=== PATIENT | male | born 1945 | race Two or more races ===

== ENCOUNTER 2017-11-16 17:12 | Inpatient (IN) | payer OTHER ==
[~2017-11-16] VITALS: Ht 175.3 cm; Wt 62.6 kg
[2017-11-16] MEDS ORDERED: FEE PK DOSING 1 MIN EA MC ONE (17:18)
[2017-11-16 18:01] LABS: BASOPHILS % (AUTO) 0.2 % (0.0-2.0); EOSINOPHILS # (AUTO) 0.1 /CMM (0.0-0.7); EOSINOPHILS % (AUTO) 0.4 % (0.0-6.0); HEMATOCRIT 33 % (39-51); HEMOGLOBIN 11.5 g/dL (13.5-17.5); LYMPHOCYTES # (AUTO) 6.6 /CMM (0.8-4.8); LYMPHOCYTES % (AUTO) 36.8 % (20.0-44.0); MEAN CORPUSCULAR HEMOGLOBIN 33 PG (26.0-33.0); MEAN CORPUSCULAR HGB CONC 34 g/dl (31.0-36.0); MEAN CORPUSCULAR VOLUME 95 fL (80-96); MONOCYTES # (AUTO) 1.3 /CMM (0.1-1.30); MONOCYTES % (AUTO) 7.1 % (2.0-12.0); NEUTROPHILS # (AUTO) 10.1 /CMM (1.8-8.9); NEUTROPHILS % (AUTO) 55.5 % (43.0-81.0); PLATELET COUNT (AUTO) 513 /CMM (150-450); RDW COEFFICIENT OF VARIATION 14.9 (11.5-15.0); RED BLOOD CELL COUNT(AUTO) 3.51 MIL/uL (4.5-6.0); WHITE BLOOD COUNT (AUTO) 18.1 K/uL (4.3-11.0)
[2017-11-16 18:16] LABS: INR 1.47 (0.87-1.13); PROTHROMBIN TIME 15.3 SECS (9.5-12.7)
[2017-11-16 18:18] LABS: ALANINE AMINOTRANSFERASE 166 U/L (12-78); ALBUMIN 2.1 g/dL (3.4-5.0); ALKALINE PHOSPHATASE 355 U/L (46-116); ASPARTATE AMINOTRANSFERASE 79 U/L (15-37); BILIRUBIN,DIRECT 0.6 mg/dL (0.0-0.2); BILIRUBIN,TOTAL 0.8 mg/dL (0.2-1.0); CARBON DIOXIDE 16 mmol/L (21-32); CHLORIDE 119 mmol/L (98-107); CREATININE 1.5 mg/dL (0.6-1.3); GLUCOSE 152 mg/dL (74-106); POTASSIUM 5.3 mmol/L (3.5-5.1); SODIUM SERUM 147 mmol/L (136-145); TOTAL PROTEIN, SERUM 7.3 g/dL (6.4-8.2); UREA NITROGEN, BLOOD 57 mg/dL (7-18)
[2017-11-16 18:20] LABS: TROPONIN I 0.027 ng/mL (0.00-0.056)
[2017-11-16] MEDS ORDERED: LACT-96 GT (18:54)
[2017-11-16] MEDS ORDERED: SODI325T GT (18:54)
[2017-11-16] MEDS ORDERED: IPRA3AMP IH ×2 (18:54)
[2017-11-16] MEDS ORDERED: HYDR-552 GT (18:54)
[2017-11-16] MEDS ORDERED: CHLO118M MM (18:54)
[2017-11-16] MEDS ORDERED: NIFE20CA GT (18:54)
[2017-11-16] MEDS ORDERED: VANC1VIA IV (18:54)
[2017-11-16] MEDS ORDERED: PROT946L GT (18:54)
[2017-11-16] MEDS ORDERED: FAMO20TA8 GT (18:54)
[2017-11-16] MEDS ORDERED: ACET650S26 GT (18:54)
[2017-11-16] MEDS ORDERED: LEVE500T9 GT (18:54)
[2017-11-16] MEDS ORDERED: FOLI1TAB16 GT (18:54)
[2017-11-16] MEDS ORDERED: HYDR-4077 GT (18:54)
[2017-11-16] MEDS ORDERED: THIA100T74 GT (18:54)
[2017-11-16] MEDS ORDERED: WARF1TAB6 GT (18:54)
[2017-11-16] MEDS ORDERED: RIFA550T GT (18:54)
[2017-11-16] MEDS ORDERED: ACID1TAB12 GT (18:54)
[2017-11-16] MEDS ORDERED: MULT-213 GT (18:54)
[2017-11-16] MEDS ORDERED: ASCO500T9 GT (18:54)
[2017-11-16] MEDS ORDERED: SODIUM POLYSTYRENE SULFONATE 15 G/60 ML BOTTLE PO ONE (19:00)
[2017-11-16] MEDS ORDERED: CEFTRIAXONE 1GM BAG (ER ONLY) 50 ML IV ONE ×2 (19:00→19:03)
[2017-11-16] MEDS ORDERED: DEXTROSE 50%-WATER 50 ML DISP.SYRIN IV PRN (19:00)
[2017-11-16] MEDS ORDERED: ACETAMINOPHEN 650 MG/SUPP.RECT RC PRN (19:00)
[2017-11-16] MEDS ORDERED: NOREPINEPHRINE 8 MG in IV D5W 500 ML IV PRN (19:00)
[2017-11-16] MEDS ORDERED: ONDANSETRON HCL/PF 4 MG/2 ML VIAL IVP PRN (19:00)
[2017-11-16 19:54] LABS: APPEARANCE,URINE CLEAR (CLEAR); BILIRUBIN,URINE NEGATIVE (NEGATIVE); BLOOD, URINE NEGATIVE Ery/uL (NEGATIVE); COLOR,URINE YELLOW (YELLOW); KETONES,URINE NEGATIVE (NEGATIVE); LEUKOCYTE ESTERASE ,URINE NEGATIVE (NEGATIVE); NITRITE, URINE NEGATIVE (NEGATIVE); PH,URINE 5.5 (5.0-8.0); PROTEIN,URINE NEGATIVE (NEGATIVE); UGLUCOSE NEGATIVE (NEGATIVE); UROBILINOGEN,URINE 0.2 EU/dL (0.2)
[2017-11-16] MEDS ORDERED: IV NS 0.9% 1,000 ML BAG IV ONE (20:00)
[2017-11-16] MEDS ORDERED: IPRATROPIUM NEB FS 0.5 MG/2.5 ML AMPUL.NEB NEB PRN (20:30)
[2017-11-16] MEDS ORDERED: ACETAMINOPHEN 650 MG/20.3 ML UDC GT PRN (20:30)
[2017-11-16] MEDS ORDERED: VANCOMYCIN 1.25 GM in IV D5W 500 ML IV SCH (21:00)
[2017-11-16] MEDS ORDERED: PIPERACILLIN /TAZOBACTAM 4.5 G in IV D5W 50 ML IV SCH (21:00)
[2017-11-16 21:46] VITALS: BP 146/94
[2017-11-16] MEDS: PIPERACILLIN /TAZOBACTAM 3.375 G in IV D5W 50 ML IV SCH (21:53)
[2017-11-16] MEDS: IV NS 0.9% 1,000 ML IV SCH (21:53)
[2017-11-16 22:00] VITALS: BP 145/82
[2017-11-16 22:15] VITALS: BP 136/74
[2017-11-16] MEDS: NORMAL SALINE FLUSH 10 ML SYR IV SCH (22:29)
[2017-11-16 22:45] VITALS: BP 131/79
[2017-11-16] MEDS ORDERED: SODIUM POLYSTYRENE SULFONATE 15 G/60 ML BOTTLE ONE (22:45)
[2017-11-16] MEDS: LEVETIRACETAM SOL (5 ML) 100 MG/ML UDC GT SCH (22:46)
[2017-11-16 23:00] VITALS: BP 143/80
[2017-11-16] MEDS ORDERED: INSULIN REGULAR, HUMAN 100 UNIT/ML 3 ML VIAL ONE (23:34)
[2017-11-16] MEDS: BLOOD SUGAR DIAGNOSTIC 1 EACH STRIP IN SCH (23:47)
[2017-11-16] MEDS: FIBERSOURCE HN 1,000 ML BOTTLE NG PRN (23:47)
[2017-11-16] MEDS: INSULIN REGULAR, HUMAN 100 UNIT/ML 3 ML VIAL SQ PRN (23:56)
[2017-11-17] VITALS (48 sets, daily range): BP systolic 104–153; BP diastolic 60–87
[2017-11-17] MEDS: IPRATROPIUM NEB FS 0.5 MG/2.5 ML AMPUL.NEB NEB SCH ×4 (00:53→20:00)
[2017-11-17] MEDS: ALBUTEROL FS 2.5 MG/0.5 ML VIAL.NEB NEB SCH ×4 (00:53→20:00)
[2017-11-17] MEDS ORDERED: ALBUTEROL FS 2.5 MG/0.5 ML VIAL.NEB NEB PRN (01:30)
[2017-11-17] MEDS: PIPERACILLIN /TAZOBACTAM 3.375 G in IV D5W 50 ML IV SCH ×4 (02:18→17:20)
[2017-11-17 04:25] LABS: BASOPHILS % (AUTO) 0.2 % (0.0-2.0); EOSINOPHILS # (AUTO) 0.1 /CMM (0.0-0.7); EOSINOPHILS % (AUTO) 0.3 % (0.0-6.0); HEMATOCRIT 34 % (39-51); HEMOGLOBIN 11.1 g/dL (13.5-17.5); LYMPHOCYTES # (AUTO) 5.3 /CMM (0.8-4.8); LYMPHOCYTES % (AUTO) 33.1 % (20.0-44.0); MEAN CORPUSCULAR HEMOGLOBIN 32 PG (26.0-33.0); MEAN CORPUSCULAR HGB CONC 33 g/dl (31.0-36.0); MEAN CORPUSCULAR VOLUME 99 fL (80-96); MONOCYTES # (AUTO) 0.8 /CMM (0.1-1.30); NEUTROPHILS # (AUTO) 9.8 /CMM (1.8-8.9); NEUTROPHILS % (AUTO) 61.4 % (43.0-81.0); PLATELET COUNT (AUTO) 442 /CMM (150-450); RDW COEFFICIENT OF VARIATION 15.8 (11.5-15.0); RED BLOOD CELL COUNT(AUTO) 3.44 MIL/uL (4.5-6.0); WHITE BLOOD COUNT (AUTO) 15.9 K/uL (4.3-11.0)
[2017-11-17 04:44] LABS: ALANINE AMINOTRANSFERASE 158 U/L (12-78); ALBUMIN 1.9 g/dL (3.4-5.0); ALKALINE PHOSPHATASE 332 U/L (46-116); ASPARTATE AMINOTRANSFERASE 74 U/L (15-37); BILIRUBIN,DIRECT 0.6 mg/dL (0.0-0.2); CALCIUM, SERUM 8.8 mg/dL (8.5-10.1); CARBON DIOXIDE 16 mmol/L (21-32); CHLORIDE 123 mmol/L (98-107); CREATININE 1.4 mg/dL (0.6-1.3); GLUCOSE 175 mg/dL (74-106); MAGNESIUM 2.8 mg/dL (1.8-2.4); PHOSPHORUS 4.6 mg/dL (2.5-4.9); POTASSIUM 4.6 mmol/L (3.5-5.1); SODIUM SERUM 153 mmol/L (136-145); UREA NITROGEN, BLOOD 51 mg/dL (7-18)
[2017-11-17] MEDS: IV NS 0.9% 1,000 ML IV SCH ×2 (05:00→10:09)
[2017-11-17] MEDS: BLOOD SUGAR DIAGNOSTIC 1 EACH STRIP IN SCH ×3 (05:52→17:21)
[2017-11-17] MEDS: NORMAL SALINE FLUSH 10 ML SYR IV SCH ×3 (05:52→21:24)
[2017-11-17] MEDS: INSULIN REGULAR, HUMAN 100 UNIT/ML 3 ML VIAL SQ PRN ×2 (05:57→12:38)
[2017-11-17] MEDS ORDERED: Z GUARD REMEDY 2 OZ OINT TP PRN (08:30)
[2017-11-17] MEDS ORDERED: HYDROGEL DRESSING 90 GM TUBE TP PRN (08:30)
[2017-11-17 08:52] LABS: ABG BASE EXCESS -9.3 mmol/L; ABG OXYGEN SATURATION 96.4 % (92.0-98.5); ABG PCO2 24.2 mmHg (35.0-45.0); ABG PH 7.386 (7.350-7.450); ABG PO2 94.6 mmHg (75.0-100.0); AaDO2 76.5 mmHg; COHb 0.2 % (0.5-1.5); MetHb 0.5 % (0.0-1.5); O2Hb 95.7 % (94.0-97.0); SITE, ABG Left Radial; VENT MODE, BG COOL AEROSOL @ 28%
[2017-11-17] MEDS ORDERED: SODIUM BICARBONATE 325 MG TABLET GT SCH (09:00)
[2017-11-17] MEDS ORDERED: RIFAXIMIN 550 MG TABLET PO SCH (09:00)
[2017-11-17] MEDS: LEVETIRACETAM SOL (5 ML) 100 MG/ML UDC GT SCH ×2 (09:11→21:24)
[2017-11-17] MEDS: PANTOPRAZOLE 40 MG VIAL IV SCH (09:11)
[2017-11-17] MEDS: ACIDOPHILUS/BULGARICUS 1 EACH TAB.CHEW GT SCH (09:11)
[2017-11-17] MEDS: FOLIC ACID 1 MG TABLET GT SCH (09:11)
[2017-11-17] MEDS: RIFAXIMIN 550 MG TABLET PO SCH ×2 (09:11→17:20)
[2017-11-17] MEDS: FAMOTIDINE (20 MG) 20 MG TABLET GT SCH (09:11)
[2017-11-17] MEDS: CHLORHEXIDINE GLUCONATE 15 ML UDC MM SCH ×2 (09:11→17:20)
[2017-11-17] MEDS: THIAMINE HCL 100 MG TABLET GT SCH (09:12)
[2017-11-17] MEDS: MULTIVIT, IRON, MIN NO. 8, FA 1 TAB GT SCH (09:12)
[2017-11-17] MEDS: Z GUARD REMEDY 2 OZ OINT TP SCH (09:12)
[2017-11-17] MEDS: ASCORBIC ACID 500 MG TABLET GT SCH (09:12)
[2017-11-17] MEDS: PROSOURCE / PROSTAT (PYXIS) 30 ML UDC GT SCH (09:15)
[2017-11-17] MEDS: VANCOMYCIN 1 GM in IV D5W 250 ML IV SCH (10:16)
[2017-11-17] MEDS: IV 1/2NS 1000 ML 1,000 ML IV SCH ×2 (12:31→20:30)
[2017-11-17] MEDS: HYDROGEL DRESSING 90 GM TUBE TP SCH (12:34)
[2017-11-17] MEDS: FIBERSOURCE HN 1,000 ML BOTTLE NG PRN (21:24)
[2017-11-18] VITALS (26 sets, daily range): BP systolic 105–155; BP diastolic 63–84
[2017-11-18] MEDS: PIPERACILLIN /TAZOBACTAM 3.375 G in IV D5W 50 ML IV SCH ×5 (00:44→23:05)
[2017-11-18] MEDS: BLOOD SUGAR DIAGNOSTIC 1 EACH STRIP IN SCH ×5 (00:44→23:05)
[2017-11-18] MEDS: INSULIN REGULAR, HUMAN 100 UNIT/ML 3 ML VIAL SQ PRN ×3 (00:55→23:06)
[2017-11-18] MEDS: IPRATROPIUM NEB FS 0.5 MG/2.5 ML AMPUL.NEB NEB SCH ×4 (00:55→19:52)
[2017-11-18] MEDS: ALBUTEROL FS 2.5 MG/0.5 ML VIAL.NEB NEB SCH ×4 (00:55→19:52)
[2017-11-18] MEDS: IV 1/2NS 1000 ML 1,000 ML IV SCH ×2 (03:51→16:55)
[2017-11-18 05:08] LABS: CALCIUM, SERUM 8.8 mg/dL (8.5-10.1); CARBON DIOXIDE 15 mmol/L (21-32); CHLORIDE 120 mmol/L (98-107); CREATININE 1.4 mg/dL (0.6-1.3); GLUCOSE 168 mg/dL (74-106); SODIUM SERUM 148 mmol/L (136-145); UREA NITROGEN, BLOOD 47 mg/dL (7-18)
[2017-11-18] MEDS: NORMAL SALINE FLUSH 10 ML SYR IV SCH ×3 (05:31→20:52)
[2017-11-18] MEDS: PANTOPRAZOLE 40 MG VIAL IV SCH (09:22)
[2017-11-18] MEDS: CHLORHEXIDINE GLUCONATE 15 ML UDC MM SCH ×2 (09:22→16:55)
[2017-11-18] MEDS: LEVETIRACETAM SOL (5 ML) 100 MG/ML UDC GT SCH ×2 (09:22→20:52)
[2017-11-18] MEDS: THIAMINE HCL 100 MG TABLET GT SCH (09:23)
[2017-11-18] MEDS: MULTIVIT, IRON, MIN NO. 8, FA 1 TAB GT SCH (09:23)
[2017-11-18] MEDS: FAMOTIDINE (20 MG) 20 MG TABLET GT SCH (09:23)
[2017-11-18] MEDS: PROSOURCE / PROSTAT (PYXIS) 30 ML UDC GT SCH (09:23)
[2017-11-18] MEDS: ACIDOPHILUS/BULGARICUS 1 EACH TAB.CHEW GT SCH (09:23)
[2017-11-18] MEDS: ASCORBIC ACID 500 MG TABLET GT SCH (09:23)
[2017-11-18] MEDS: FOLIC ACID 1 MG TABLET GT SCH (09:23)
[2017-11-18] MEDS: RIFAXIMIN 550 MG TABLET PO SCH ×2 (09:23→16:55)
[2017-11-18] MEDS: HYDROGEL DRESSING 90 GM TUBE TP SCH (09:24)
[2017-11-18] MEDS: Z GUARD REMEDY 2 OZ OINT TP SCH (09:24)
[2017-11-18] MEDS: VANCOMYCIN 1 GM in IV D5W 250 ML IV SCH (09:24)
[2017-11-18 10:30] LABS: ABG BASE EXCESS -10.1 mmol/L; ABG OXYGEN SATURATION 97.2 % (92.0-98.5); ABG PCO2 26.5 mmHg (35.0-45.0); ABG PH 7.346 (7.350-7.450); ABG PO2 104.9 mmHg (75.0-100.0); AaDO2 63.5 mmHg; COHb 0.2 % (0.5-1.5); MetHb 0.4 % (0.0-1.5); O2Hb 96.6 % (94.0-97.0); SITE, ABG Left Radial; VENT MODE, BG CA 28%
[2017-11-18] MEDS: LACTOBACILLUS RHAMNOSUS GG 1 EACH CAP.SPRINK PO SCH (16:55)
[2017-11-18] MEDS: FIBERSOURCE HN 1,000 ML BOTTLE NG PRN (18:21)
[2017-11-19] VITALS (24 sets, daily range): BP systolic 109–152; BP diastolic 60–88
[2017-11-19] MEDS: ALBUTEROL FS 2.5 MG/0.5 ML VIAL.NEB NEB SCH ×4 (02:30→19:55)
[2017-11-19] MEDS: IPRATROPIUM NEB FS 0.5 MG/2.5 ML AMPUL.NEB NEB SCH ×4 (02:30→19:55)
[2017-11-19] MEDS: IV 1/2NS 1000 ML 1,000 ML IV SCH ×3 (03:35→23:19)
[2017-11-19 04:50] LABS: BASOPHILS % (AUTO) 0.2 % (0.0-2.0); EOSINOPHILS # (AUTO) 0.2 /CMM (0.0-0.7); EOSINOPHILS % (AUTO) 1.2 % (0.0-6.0); HEMATOCRIT 32 % (39-51); HEMOGLOBIN 10.4 g/dL (13.5-17.5); LYMPHOCYTES # (AUTO) 6.6 /CMM (0.8-4.8); LYMPHOCYTES % (AUTO) 37.9 % (20.0-44.0); MEAN CORPUSCULAR HEMOGLOBIN 32 PG (26.0-33.0); MEAN CORPUSCULAR HGB CONC 33 g/dl (31.0-36.0); MEAN CORPUSCULAR VOLUME 98 fL (80-96); MONOCYTES # (AUTO) 0.9 /CMM (0.1-1.30); MONOCYTES % (AUTO) 5.4 % (2.0-12.0); NEUTROPHILS # (AUTO) 9.6 /CMM (1.8-8.9); NEUTROPHILS % (AUTO) 55.3 % (43.0-81.0); PLATELET COUNT (AUTO) 462 /CMM (150-450); RDW COEFFICIENT OF VARIATION 15.7 (11.5-15.0); RED BLOOD CELL COUNT(AUTO) 3.25 MIL/uL (4.5-6.0); WHITE BLOOD COUNT (AUTO) 17.4 K/uL (4.3-11.0)
[2017-11-19 05:03] LABS: CALCIUM, SERUM 8.5 mg/dL (8.5-10.1); CARBON DIOXIDE 16 mmol/L (21-32); CHLORIDE 115 mmol/L (98-107); CREATININE 1.4 mg/dL (0.6-1.3); GLUCOSE 136 mg/dL (74-106); POTASSIUM 4.2 mmol/L (3.5-5.1); SODIUM SERUM 143 mmol/L (136-145); UREA NITROGEN, BLOOD 42 mg/dL (7-18)
[2017-11-19] MEDS: NORMAL SALINE FLUSH 10 ML SYR IV SCH ×3 (05:35→20:50)
[2017-11-19] MEDS: PIPERACILLIN /TAZOBACTAM 3.375 G in IV D5W 50 ML IV SCH ×4 (05:35→23:21)
[2017-11-19] MEDS: BLOOD SUGAR DIAGNOSTIC 1 EACH STRIP IN SCH ×4 (05:57→23:27)
[2017-11-19] MEDS: FOLIC ACID 1 MG TABLET GT SCH (08:26)
[2017-11-19] MEDS: ASCORBIC ACID 500 MG TABLET GT SCH (08:26)
[2017-11-19] MEDS: MULTIVIT, IRON, MIN NO. 8, FA 1 TAB GT SCH (08:26)
[2017-11-19] MEDS: LEVETIRACETAM SOL (5 ML) 100 MG/ML UDC GT SCH ×2 (08:26→20:50)
[2017-11-19] MEDS: LACTOBACILLUS RHAMNOSUS GG 1 EACH CAP.SPRINK PO SCH ×2 (08:26→16:57)
[2017-11-19] MEDS: ACIDOPHILUS/BULGARICUS 1 EACH TAB.CHEW GT SCH (08:26)
[2017-11-19] MEDS: FAMOTIDINE (20 MG) 20 MG TABLET GT SCH (08:26)
[2017-11-19] MEDS: PANTOPRAZOLE 40 MG VIAL IV SCH (08:26)
[2017-11-19] MEDS: RIFAXIMIN 550 MG TABLET PO SCH ×2 (08:26→16:57)
[2017-11-19] MEDS: THIAMINE HCL 100 MG TABLET GT SCH (08:26)
[2017-11-19] MEDS: CHLORHEXIDINE GLUCONATE 15 ML UDC MM SCH ×2 (08:26→16:57)
[2017-11-19] MEDS: Z GUARD REMEDY 2 OZ OINT TP SCH (08:27)
[2017-11-19] MEDS: HYDROGEL DRESSING 90 GM TUBE TP SCH (08:27)
[2017-11-19] MEDS: PROSOURCE / PROSTAT (PYXIS) 30 ML UDC GT SCH (08:28)
[2017-11-19] MEDS ORDERED: SILVER NITRATE APPLICATOR 1 EA BOX TP ONE (08:30)
[2017-11-19] MEDS ORDERED: LIDOCAINE 2%-EPI 1:100,000 30 ML VIAL TP ONE (08:30)
[2017-11-19] MEDS: VANCOMYCIN 1 GM in IV D5W 250 ML IV SCH (10:53)
[2017-11-19] MEDS: INSULIN REGULAR, HUMAN 100 UNIT/ML 3 ML VIAL SQ PRN (11:45)
[2017-11-19] MEDS: FIBERSOURCE HN 1,000 ML BOTTLE NG PRN (14:52)
[2017-11-20] VITALS (23 sets, daily range): BP systolic 123–179; BP diastolic 68–106
[2017-11-20] MEDS: IPRATROPIUM NEB FS 0.5 MG/2.5 ML AMPUL.NEB NEB SCH ×4 (02:19→19:36)
[2017-11-20] MEDS: ALBUTEROL FS 2.5 MG/0.5 ML VIAL.NEB NEB SCH ×4 (02:19→19:36)
[2017-11-20] MEDS: NORMAL SALINE FLUSH 10 ML SYR IV SCH ×3 (04:54→21:14)
[2017-11-20 05:20] LABS: BASOPHILS # (AUTO) 0.1 /CMM (0.0-0.2); BASOPHILS % (AUTO) 0.3 % (0.0-2.0); EOSINOPHILS # (AUTO) 0.2 /CMM (0.0-0.7); EOSINOPHILS % (AUTO) 0.7 % (0.0-6.0); HEMATOCRIT 31 % (39-51); HEMOGLOBIN 10.3 g/dL (13.5-17.5); LYMPHOCYTES # (AUTO) 8.5 /CMM (0.8-4.8); LYMPHOCYTES % (AUTO) 40.6 % (20.0-44.0); MEAN CORPUSCULAR HEMOGLOBIN 32 PG (26.0-33.0); MEAN CORPUSCULAR HGB CONC 33 g/dl (31.0-36.0); MEAN CORPUSCULAR VOLUME 97 fL (80-96); MONOCYTES # (AUTO) 1.1 /CMM (0.1-1.30); MONOCYTES % (AUTO) 5.5 % (2.0-12.0); NEUTROPHILS % (AUTO) 52.9 % (43.0-81.0); PLATELET COUNT (AUTO) 481 /CMM (150-450); RDW COEFFICIENT OF VARIATION 15.1 (11.5-15.0); WHITE BLOOD COUNT (AUTO) 20.8 K/uL (4.3-11.0)
[2017-11-20 05:25] LABS: CALCIUM, SERUM 8.5 mg/dL (8.5-10.1); CARBON DIOXIDE 15 mmol/L (21-32); CHLORIDE 111 mmol/L (98-107); CREATININE 1.3 mg/dL (0.6-1.3); GLUCOSE 119 mg/dL (74-106); POTASSIUM 4.3 mmol/L (3.5-5.1); SODIUM SERUM 139 mmol/L (136-145); UREA NITROGEN, BLOOD 35 mg/dL (7-18)
[2017-11-20] MEDS: PIPERACILLIN /TAZOBACTAM 3.375 G in IV D5W 50 ML IV SCH (05:29)
[2017-11-20] MEDS: BLOOD SUGAR DIAGNOSTIC 1 EACH STRIP IN SCH ×4 (05:37→23:47)
[2017-11-20 06:21] LABS: EOSINOPHILS % (MANUAL) 1 % (0-4); LYMPHOCYTES % (MANUAL) 35 % (16-48); MONOCYTES % (MANUAL) 6 % (0-11.0); NEUTROPHILS % (MANUAL) 58 (42-76)
[2017-11-20] MEDS: IV 1/2NS 1000 ML 1,000 ML IV SCH ×2 (09:33→18:30)
[2017-11-20] MEDS: ACIDOPHILUS/BULGARICUS 1 EACH TAB.CHEW GT SCH (09:33)
[2017-11-20] MEDS: Z GUARD REMEDY 2 OZ OINT TP SCH (09:33)
[2017-11-20] MEDS: NEOMY SULF/BACITRAC ZN/POLY 15 GM TUBE TP SCH (09:33)
[2017-11-20] MEDS: HYDROGEL DRESSING 90 GM TUBE TP SCH (09:33)
[2017-11-20] MEDS: LACTOBACILLUS RHAMNOSUS GG 1 EACH CAP.SPRINK PO SCH ×2 (09:34→17:09)
[2017-11-20] MEDS: THIAMINE HCL 100 MG TABLET GT SCH (09:34)
[2017-11-20] MEDS: CHLORHEXIDINE GLUCONATE 15 ML UDC MM SCH ×2 (09:34→17:09)
[2017-11-20] MEDS: RIFAXIMIN 550 MG TABLET PO SCH ×2 (09:34→17:09)
[2017-11-20] MEDS: FAMOTIDINE (20 MG) 20 MG TABLET GT SCH (09:34)
[2017-11-20] MEDS: LEVETIRACETAM SOL (5 ML) 100 MG/ML UDC GT SCH ×2 (09:34→21:14)
[2017-11-20] MEDS: ASCORBIC ACID 500 MG TABLET GT SCH (09:34)
[2017-11-20] MEDS: MULTIVIT, IRON, MIN NO. 8, FA 1 TAB GT SCH (09:34)
[2017-11-20] MEDS: PANTOPRAZOLE 40 MG VIAL IV SCH (09:34)
[2017-11-20] MEDS: FOLIC ACID 1 MG TABLET GT SCH (09:34)
[2017-11-20] MEDS: PROSOURCE / PROSTAT (PYXIS) 30 ML UDC GT SCH (09:35)
[2017-11-20] MEDS: VANCOMYCIN 1 GM in IV D5W 250 ML IV SCH (09:36)
[2017-11-20] MEDS: PIPERACILLIN /TAZOBACTAM 4.5 G in IV D5W 50 ML IV SCH ×3 (12:21→23:55)
[2017-11-20] MEDS: FIBERSOURCE HN 1,000 ML BOTTLE NG PRN (12:22)
[2017-11-20] MEDS: VANCOMYCIN 0.75 GM in IV D5W 250 ML IV SCH (22:00)
[2017-11-21] VITALS: BP 142/80
[2017-11-21] MEDS: IV 1/2NS 1000 ML 1,000 ML IV SCH (01:49)
[2017-11-21] MEDS: IPRATROPIUM NEB FS 0.5 MG/2.5 ML AMPUL.NEB NEB SCH ×4 (01:58→19:55)
[2017-11-21] MEDS: ALBUTEROL FS 2.5 MG/0.5 ML VIAL.NEB NEB SCH ×4 (01:58→19:55)
[2017-11-21 04:00] VITALS: BP 164/87
[2017-11-21] MEDS: NORMAL SALINE FLUSH 10 ML SYR IV SCH ×3 (05:08→21:13)
[2017-11-21] MEDS: PIPERACILLIN /TAZOBACTAM 4.5 G in IV D5W 50 ML IV SCH ×3 (05:08→17:11)
[2017-11-21] MEDS: BLOOD SUGAR DIAGNOSTIC 1 EACH STRIP IN SCH ×3 (05:08→18:21)
[2017-11-21 08:00] VITALS: BP_SYST 144; BP_DIAS 66; BP_DIAS 77
[2017-11-21 08:10] LABS: BASOPHILS # (AUTO) 0.1 /CMM (0.0-0.2); BASOPHILS % (AUTO) 0.2 % (0.0-2.0); EOSINOPHILS % (AUTO) 0.1 % (0.0-6.0); HEMATOCRIT 33 % (39-51); HEMOGLOBIN 10.7 g/dL (13.5-17.5); LYMPHOCYTES % (AUTO) 31.3 % (20.0-44.0); MEAN CORPUSCULAR HEMOGLOBIN 32 PG (26.0-33.0); MEAN CORPUSCULAR HGB CONC 33 g/dl (31.0-36.0); MEAN CORPUSCULAR VOLUME 97 fL (80-96); MONOCYTES # (AUTO) 1.3 /CMM (0.1-1.30); MONOCYTES % (AUTO) 5.9 % (2.0-12.0); NEUTROPHILS # (AUTO) 13.9 /CMM (1.8-8.9); NEUTROPHILS % (AUTO) 62.5 % (43.0-81.0); PLATELET COUNT (AUTO) 538 /CMM (150-450); RDW COEFFICIENT OF VARIATION 15.1 (11.5-15.0); RED BLOOD CELL COUNT(AUTO) 3.36 MIL/uL (4.5-6.0); WHITE BLOOD COUNT (AUTO) 22.3 K/uL (4.3-11.0)
[2017-11-21 08:36] LABS: CALCIUM, SERUM 8.8 mg/dL (8.5-10.1); CARBON DIOXIDE 16 mmol/L (21-32); CHLORIDE 110 mmol/L (98-107); CREATININE 1.3 mg/dL (0.6-1.3); GLUCOSE 125 mg/dL (74-106); POTASSIUM 4.9 mmol/L (3.5-5.1); SODIUM SERUM 139 mmol/L (136-145); UREA NITROGEN, BLOOD 30 mg/dL (7-18)
[2017-11-21] MEDS: LEVETIRACETAM SOL (5 ML) 100 MG/ML UDC GT SCH ×3 (09:49→21:15)
[2017-11-21] MEDS: LACTOBACILLUS RHAMNOSUS GG 1 EACH CAP.SPRINK PO SCH ×3 (09:50→17:21)
[2017-11-21] MEDS: ACIDOPHILUS/BULGARICUS 1 EACH TAB.CHEW GT SCH ×2 (09:50→11:12)
[2017-11-21] MEDS: FOLIC ACID 1 MG TABLET GT SCH ×2 (09:50→11:14)
[2017-11-21] MEDS: RIFAXIMIN 550 MG TABLET PO SCH ×5 (09:50→17:16)
[2017-11-21] MEDS: FAMOTIDINE (20 MG) 20 MG TABLET GT SCH ×2 (09:50→11:14)
[2017-11-21] MEDS: MULTIVIT, IRON, MIN NO. 8, FA 1 TAB GT SCH ×2 (09:50→11:13)
[2017-11-21] MEDS: CHLORHEXIDINE GLUCONATE 15 ML UDC MM SCH ×2 (09:50→17:11)
[2017-11-21] MEDS: ASCORBIC ACID 500 MG TABLET GT SCH ×2 (09:50→11:14)
[2017-11-21] MEDS: THIAMINE HCL 100 MG TABLET GT SCH ×2 (09:55→11:12)
[2017-11-21] MEDS: PROSOURCE / PROSTAT (PYXIS) 30 ML UDC GT SCH (09:59)
[2017-11-21] MEDS: NEOMY SULF/BACITRAC ZN/POLY 15 GM TUBE TP SCH (10:00)
[2017-11-21] MEDS: VANCOMYCIN 0.75 GM in IV D5W 250 ML IV SCH (10:00)
[2017-11-21] MEDS: HYDROGEL DRESSING 90 GM TUBE TP SCH (10:00)
[2017-11-21] MEDS: Z GUARD REMEDY 2 OZ OINT TP SCH (10:00)
[2017-11-21] MEDS ORDERED: hydrALAZINE HCL IV 20 MG VIAL IV PRN (10:00)
[2017-11-21] MEDS: PANTOPRAZOLE 40 MG VIAL IV SCH ×3 (10:07→10:36)
[2017-11-21 12:00] VITALS: BP 134/83
[2017-11-21] MEDS: FIBERSOURCE HN 1,000 ML BOTTLE NG PRN (15:12)
[2017-11-21 15:56] LABS: THYROID STIMULATING HORMONE 1.852 uIU/mL (0.358-3.74)
[2017-11-21 16:00] VITALS: BP_SYST 130; BP_SYST 134; BP_DIAS 83
[2017-11-21] MEDS: INSULIN REGULAR, HUMAN 100 UNIT/ML 3 ML VIAL SQ PRN (18:21)
[2017-11-21 19:17] LABS: PROTHROMBIN TIME 24.6 SECS (9.5-12.7)
[2017-11-21 19:18] LABS: D-DIMER 1.05 mg/L(FEU (0.17-0.50); INR 2.35 (0.87-1.13)
[2017-11-21 20:00] VITALS: BP 151/70
[2017-11-22] VITALS: BP 118/65
[2017-11-22] MEDS: BLOOD SUGAR DIAGNOSTIC 1 EACH STRIP IN SCH ×4 (00:08→17:48)
[2017-11-22] MEDS: INSULIN REGULAR, HUMAN 100 UNIT/ML 3 ML VIAL SQ PRN ×4 (00:11→17:51)
[2017-11-22] MEDS: IPRATROPIUM NEB FS 0.5 MG/2.5 ML AMPUL.NEB NEB SCH ×4 (01:11→20:14)
[2017-11-22] MEDS: ALBUTEROL FS 2.5 MG/0.5 ML VIAL.NEB NEB SCH ×4 (01:12→20:14)
[2017-11-22 04:00] VITALS: BP 144/63
[2017-11-22] MEDS: NORMAL SALINE FLUSH 10 ML SYR IV SCH ×3 (04:37→21:11)
[2017-11-22] MEDS: FIBERSOURCE HN 1,000 ML BOTTLE NG PRN (04:46)
[2017-11-22] MEDS: PIPERACILLIN /TAZOBACTAM 4.5 G in IV D5W 50 ML IV SCH ×4 (05:03→12:50)
[2017-11-22 06:34] LABS: BASOPHILS # (AUTO) 0.1 /CMM (0.0-0.2); BASOPHILS % (AUTO) 0.3 % (0.0-2.0); HEMATOCRIT 30 % (39-51); HEMOGLOBIN 9.6 g/dL (13.5-17.5); LYMPHOCYTES # (AUTO) 5.1 /CMM (0.8-4.8); MEAN CORPUSCULAR HEMOGLOBIN 32 PG (26.0-33.0); MEAN CORPUSCULAR HGB CONC 33 g/dl (31.0-36.0); MEAN CORPUSCULAR VOLUME 97 fL (80-96); MONOCYTES # (AUTO) 1.9 /CMM (0.1-1.30); MONOCYTES % (AUTO) 7.3 % (2.0-12.0); NEUTROPHILS # (AUTO) 18.4 /CMM (1.8-8.9); NEUTROPHILS % (AUTO) 72.4 % (43.0-81.0); PLATELET COUNT (AUTO) 506 /CMM (150-450); RDW COEFFICIENT OF VARIATION 15.3 (11.5-15.0); RED BLOOD CELL COUNT(AUTO) 3.03 MIL/uL (4.5-6.0); WHITE BLOOD COUNT (AUTO) 25.4 K/uL (4.3-11.0)
[2017-11-22 06:40] LABS: CALCIUM, SERUM 8.5 mg/dL (8.5-10.1); CARBON DIOXIDE 14 mmol/L (21-32); CHLORIDE 110 mmol/L (98-107); CREATININE 1.4 mg/dL (0.6-1.3); GLUCOSE 196 mg/dL (74-106); POTASSIUM 4.4 mmol/L (3.5-5.1); SODIUM SERUM 137 mmol/L (136-145); UREA NITROGEN, BLOOD 36 mg/dL (7-18)
[2017-11-22 08:00] VITALS: BP 111/74
[2017-11-22 08:06] LABS: IMMUNOGLOBULIN A, SERUM 425 mg/dL (61-437); IMMUNOGLOBULIN G, SERUM 779 mg/dL (700-1600); IMMUNOGLOBULIN M, SERUM 19 mg/dL (15-143)
[2017-11-22] MEDS ORDERED: VANCOMYCIN 1 GM in IV D5W 250 ML IV SCH (09:00)
[2017-11-22] MEDS: PANTOPRAZOLE 40 MG VIAL IV SCH (09:16)
[2017-11-22] MEDS: RIFAXIMIN 550 MG TABLET PO SCH ×2 (09:17→17:10)
[2017-11-22] MEDS: ACIDOPHILUS/BULGARICUS 1 EACH TAB.CHEW GT SCH (09:17)
[2017-11-22] MEDS: PROSOURCE / PROSTAT (PYXIS) 30 ML UDC GT SCH (09:17)
[2017-11-22] MEDS: LACTOBACILLUS RHAMNOSUS GG 1 EACH CAP.SPRINK PO SCH ×2 (09:17→17:10)
[2017-11-22] MEDS: LEVETIRACETAM SOL (5 ML) 100 MG/ML UDC GT SCH ×2 (09:17→21:12)
[2017-11-22] MEDS: MULTIVIT, IRON, MIN NO. 8, FA 1 TAB GT SCH (09:17)
[2017-11-22] MEDS: FAMOTIDINE (20 MG) 20 MG TABLET GT SCH (09:17)
[2017-11-22] MEDS: ASCORBIC ACID 500 MG TABLET GT SCH (09:17)
[2017-11-22] MEDS: FOLIC ACID 1 MG TABLET GT SCH (09:17)
[2017-11-22] MEDS: CHLORHEXIDINE GLUCONATE 15 ML UDC MM SCH ×2 (09:17→17:11)
[2017-11-22] MEDS: THIAMINE HCL 100 MG TABLET GT SCH (09:19)
[2017-11-22] MEDS: NEOMY SULF/BACITRAC ZN/POLY 15 GM TUBE TP SCH (09:21)
[2017-11-22] MEDS: HYDROGEL DRESSING 90 GM TUBE TP SCH (09:21)
[2017-11-22] MEDS: Z GUARD REMEDY 2 OZ OINT TP SCH (09:22)
[2017-11-22 12:00] VITALS: BP 127/83
[2017-11-22] MEDS ORDERED: PHYTONADIONE INJ 10 MG/1 ML AMPUL SQ ONE (13:30)
[2017-11-22 16:00] VITALS: BP 126/81
[2017-11-22 20:00] VITALS: BP 115/80
[2017-11-22] MEDS ORDERED: MEROPENEM 1 G in IV NS 0.9% 100 ML IV SCH (21:00)
[2017-11-22] MEDS: MEROPENEM 500 MG in IV NS 0.9% 50 ML IV SCH (21:16)
[2017-11-23] VITALS: BP 123/87
[2017-11-23] MEDS: BLOOD SUGAR DIAGNOSTIC 1 EACH STRIP IN SCH ×4 (00:28→17:20)
[2017-11-23] MEDS: INSULIN REGULAR, HUMAN 100 UNIT/ML 3 ML VIAL SQ PRN ×4 (00:31→17:24)
[2017-11-23] MEDS: FIBERSOURCE HN 1,000 ML BOTTLE NG PRN ×2 (00:32→17:21)
[2017-11-23] MEDS: ALBUTEROL FS 2.5 MG/0.5 ML VIAL.NEB NEB SCH ×4 (02:13→20:26)
[2017-11-23] MEDS: IPRATROPIUM NEB FS 0.5 MG/2.5 ML AMPUL.NEB NEB SCH ×4 (02:13→20:26)
[2017-11-23 04:00] VITALS: BP 133/79
[2017-11-23] MEDS: NORMAL SALINE FLUSH 10 ML SYR IV SCH ×3 (05:01→21:19)
[2017-11-23 07:04] LABS: CALCIUM, SERUM 8.6 mg/dL (8.5-10.1); CARBON DIOXIDE 14 mmol/L (21-32); CHLORIDE 107 mmol/L (98-107); CREATININE 1.8 mg/dL (0.6-1.3); GLUCOSE 206 mg/dL (74-106); MAGNESIUM 2.6 mg/dL (1.8-2.4); PHOSPHORUS 3.6 mg/dL (2.5-4.9); POTASSIUM 4.5 mmol/L (3.5-5.1); SODIUM SERUM 138 mmol/L (136-145); UREA NITROGEN, BLOOD 54 mg/dL (7-18)
[2017-11-23 07:34] LABS: BASOPHILS # (AUTO) 0.1 /CMM (0.0-0.2); BASOPHILS % (AUTO) 0.3 % (0.0-2.0); HEMATOCRIT 26 % (39-51); HEMOGLOBIN 8.5 g/dL (13.5-17.5); LYMPHOCYTES # (AUTO) 4.7 /CMM (0.8-4.8); LYMPHOCYTES % (AUTO) 17.2 % (20.0-44.0); MEAN CORPUSCULAR HEMOGLOBIN 33 PG (26.0-33.0); MEAN CORPUSCULAR HGB CONC 33 g/dl (31.0-36.0); MEAN CORPUSCULAR VOLUME 98 fL (80-96); MONOCYTES % (AUTO) 7.3 % (2.0-12.0); NEUTROPHILS # (AUTO) 20.4 /CMM (1.8-8.9); NEUTROPHILS % (AUTO) 75.2 % (43.0-81.0); PLATELET COUNT (AUTO) 494 /CMM (150-450); RED BLOOD CELL COUNT(AUTO) 2.62 MIL/uL (4.5-6.0); WHITE BLOOD COUNT (AUTO) 27.1 K/uL (4.3-11.0)
[2017-11-23 07:44] LABS: D-DIMER 0.95 mg/L(FEU (0.17-0.50); INR 1.16 (0.87-1.13); PROTHROMBIN TIME 12.1 SECS (9.5-12.7)
[2017-11-23 08:00] VITALS: BP 139/81
[2017-11-23] MEDS: LACTOBACILLUS RHAMNOSUS GG 1 EACH CAP.SPRINK PO SCH ×2 (09:10→17:20)
[2017-11-23] MEDS: CHLORHEXIDINE GLUCONATE 15 ML UDC MM SCH ×2 (09:10→17:20)
[2017-11-23] MEDS: ACIDOPHILUS/BULGARICUS 1 EACH TAB.CHEW GT SCH (09:10)
[2017-11-23] MEDS: THIAMINE HCL 100 MG TABLET GT SCH (09:10)
[2017-11-23] MEDS: RIFAXIMIN 550 MG TABLET PO SCH ×2 (09:10→17:20)
[2017-11-23] MEDS: MULTIVIT, IRON, MIN NO. 8, FA 1 TAB GT SCH (09:10)
[2017-11-23] MEDS: PANTOPRAZOLE 40 MG VIAL IV SCH (09:10)
[2017-11-23] MEDS: Z GUARD REMEDY 2 OZ OINT TP SCH (09:11)
[2017-11-23] MEDS: ASCORBIC ACID 500 MG TABLET GT SCH (09:11)
[2017-11-23] MEDS: LEVETIRACETAM SOL (5 ML) 100 MG/ML UDC GT SCH ×2 (09:11→21:19)
[2017-11-23] MEDS: FAMOTIDINE (20 MG) 20 MG TABLET GT SCH (09:11)
[2017-11-23] MEDS: FOLIC ACID 1 MG TABLET GT SCH (09:11)
[2017-11-23] MEDS: HYDROGEL DRESSING 90 GM TUBE TP SCH (09:12)
[2017-11-23] MEDS: NEOMY SULF/BACITRAC ZN/POLY 15 GM TUBE TP SCH (09:12)
[2017-11-23] MEDS: PROSOURCE / PROSTAT (PYXIS) 30 ML UDC GT SCH (09:20)
[2017-11-23] MEDS: MEROPENEM 500 MG in IV NS 0.9% 50 ML IV SCH ×2 (09:21→21:45)
[2017-11-23 12:00] VITALS: BP 111/84
[2017-11-23 16:00] VITALS: BP 136/71
[2017-11-23 20:00] VITALS: BP 126/75
[2017-11-24] VITALS: BP 126/75
[2017-11-24] MEDS: ALBUTEROL FS 2.5 MG/0.5 ML VIAL.NEB NEB SCH ×4 (00:58→19:39)
[2017-11-24] MEDS: IPRATROPIUM NEB FS 0.5 MG/2.5 ML AMPUL.NEB NEB SCH ×4 (00:58→19:39)
[2017-11-24] MEDS: BLOOD SUGAR DIAGNOSTIC 1 EACH STRIP IN SCH ×4 (01:30→17:02)
[2017-11-24] MEDS: INSULIN REGULAR, HUMAN 100 UNIT/ML 3 ML VIAL SQ PRN ×4 (01:34→17:07)
[2017-11-24 04:00] VITALS: BP 116/55
[2017-11-24] MEDS: NORMAL SALINE FLUSH 10 ML SYR IV SCH ×3 (04:59→21:00)
[2017-11-24 07:18] LABS: BASOPHILS # (AUTO) 0.1 /CMM (0.0-0.2); BASOPHILS % (AUTO) 0.3 % (0.0-2.0); EOSINOPHILS # (AUTO) 0.2 /CMM (0.0-0.7); EOSINOPHILS % (AUTO) 0.7 % (0.0-6.0); HEMATOCRIT 24 % (39-51); HEMOGLOBIN 7.7 g/dL (13.5-17.5); LYMPHOCYTES % (AUTO) 25.6 % (20.0-44.0); MEAN CORPUSCULAR HEMOGLOBIN 32 PG (26.0-33.0); MEAN CORPUSCULAR HGB CONC 33 g/dl (31.0-36.0); MEAN CORPUSCULAR VOLUME 99 fL (80-96); MONOCYTES # (AUTO) 1.7 /CMM (0.1-1.30); NEUTROPHILS # (AUTO) 15.6 /CMM (1.8-8.9); NEUTROPHILS % (AUTO) 66.4 % (43.0-81.0); PLATELET COUNT (AUTO) 522 /CMM (150-450); RDW COEFFICIENT OF VARIATION 16.1 (11.5-15.0); RED BLOOD CELL COUNT(AUTO) 2.39 MIL/uL (4.5-6.0); WHITE BLOOD COUNT (AUTO) 23.5 K/uL (4.3-11.0)
[2017-11-24 07:25] LABS: CALCIUM, SERUM 8.6 mg/dL (8.5-10.1); CARBON DIOXIDE 14 mmol/L (21-32); CHLORIDE 112 mmol/L (98-107); GLUCOSE 176 mg/dL (74-106); POTASSIUM 4.9 mmol/L (3.5-5.1); SODIUM SERUM 141 mmol/L (136-145); UREA NITROGEN, BLOOD 69 mg/dL (7-18)
[2017-11-24 08:00] VITALS: BP 125/71
[2017-11-24] MEDS: CHLORHEXIDINE GLUCONATE 15 ML UDC MM SCH ×2 (09:34→16:55)
[2017-11-24] MEDS: ASCORBIC ACID 500 MG TABLET GT SCH (09:35)
[2017-11-24] MEDS: FOLIC ACID 1 MG TABLET GT SCH (09:35)
[2017-11-24] MEDS: THIAMINE HCL 100 MG TABLET GT SCH (09:35)
[2017-11-24] MEDS: MEROPENEM 500 MG in IV NS 0.9% 50 ML IV SCH ×2 (09:35→20:59)
[2017-11-24] MEDS: PANTOPRAZOLE 40 MG VIAL IV SCH (09:35)
[2017-11-24] MEDS: LEVETIRACETAM SOL (5 ML) 100 MG/ML UDC GT SCH ×2 (09:35→20:58)
[2017-11-24] MEDS: ACIDOPHILUS/BULGARICUS 1 EACH TAB.CHEW GT SCH (09:35)
[2017-11-24] MEDS: PROSOURCE / PROSTAT (PYXIS) 30 ML UDC GT SCH (09:36)
[2017-11-24] MEDS: HYDROGEL DRESSING 90 GM TUBE TP SCH (09:36)
[2017-11-24] MEDS: MULTIVIT, IRON, MIN NO. 8, FA 1 TAB GT SCH (09:36)
[2017-11-24] MEDS: FAMOTIDINE (20 MG) 20 MG TABLET GT SCH (09:36)
[2017-11-24] MEDS: LACTOBACILLUS RHAMNOSUS GG 1 EACH CAP.SPRINK PO SCH ×2 (09:38→16:55)
[2017-11-24] MEDS: Z GUARD REMEDY 2 OZ OINT TP SCH (09:39)
[2017-11-24] MEDS: NEOMY SULF/BACITRAC ZN/POLY 15 GM TUBE TP SCH (09:39)
[2017-11-24] MEDS: RIFAXIMIN 550 MG TABLET PO SCH ×2 (09:39→16:55)
[2017-11-24] MEDS: FIBERSOURCE HN 1,000 ML BOTTLE NG PRN (09:49)
[2017-11-24 12:00] VITALS: BP 130/71
[2017-11-24 12:09] LABS: *SPE A/G RATIO 0.7 (0.7-1.7); *SPE ALBUMIN 2.3 g/dL (2.9-4.4); *SPE ALPHA-1-GLOBULIN 0.2 g/dL (0.0-0.4); *SPE ALPHA-2-GLOBULIN 1.3 g/dL (0.4-1.0); *SPE BETA GLOBULIN 1.2 g/dL (0.7-1.3); *SPE GLOBULIN, TOTAL 3.4 g/dL (2.2-3.9); *SPE M-SPIKE Not Observed g/dL (Not Observed); *SPEGAMMA GLOBULIN 0.7 g/dL (0.4-1.8)
[2017-11-24 16:00] VITALS: BP 123/65
[2017-11-24 17:10] LABS: URINE SODIUM, RANDOM 149 mmol/l (40-220)
[2017-11-24 17:40] LABS: CREATININE, URINE < 5.0 MG/DL (30.0-125.0)
[2017-11-24 17:52] LABS: ABG BASE EXCESS -9.8 mmol/L; ABG OXYGEN SATURATION 95.6 % (92.0-98.5); ABG PO2 82.3 mmHg (75.0-100.0); AaDO2 91.4 mmHg; MetHb 0.8 % (0.0-1.5); O2Hb 94.8 % (94.0-97.0); SITE, ABG Left Radial
[2017-11-24 20:00] VITALS: BP_SYST 134; BP_SYST 146; BP_DIAS 66; BP_DIAS 76
[2017-11-25] VITALS: BP 108/68
[2017-11-25] MEDS: BLOOD SUGAR DIAGNOSTIC 1 EACH STRIP IN SCH ×4 (01:00→17:09)
[2017-11-25] MEDS: FIBERSOURCE HN 1,000 ML BOTTLE NG PRN ×2 (01:03→15:55)
[2017-11-25] MEDS: INSULIN REGULAR, HUMAN 100 UNIT/ML 3 ML VIAL SQ PRN ×4 (01:14→17:10)
[2017-11-25] MEDS: IPRATROPIUM NEB FS 0.5 MG/2.5 ML AMPUL.NEB NEB SCH ×4 (01:40→19:23)
[2017-11-25] MEDS: ALBUTEROL FS 2.5 MG/0.5 ML VIAL.NEB NEB SCH ×4 (01:41→19:24)
[2017-11-25 04:00] VITALS: BP 134/61
[2017-11-25] MEDS: NORMAL SALINE FLUSH 10 ML SYR IV SCH ×3 (04:47→21:49)
[2017-11-25 08:00] VITALS: BP 140/63
[2017-11-25 08:56] LABS: BASOPHILS # (AUTO) 0.1 /CMM (0.0-0.2); BASOPHILS % (AUTO) 0.3 % (0.0-2.0); EOSINOPHILS % (AUTO) 0.2 % (0.0-6.0); HEMATOCRIT 23 % (39-51); HEMOGLOBIN 7.9 g/dL (13.5-17.5); LYMPHOCYTES % (AUTO) 30.9 % (20.0-44.0); MEAN CORPUSCULAR HEMOGLOBIN 33 PG (26.0-33.0); MEAN CORPUSCULAR HGB CONC 34 g/dl (31.0-36.0); MEAN CORPUSCULAR VOLUME 99 fL (80-96); MONOCYTES # (AUTO) 1.6 /CMM (0.1-1.30); MONOCYTES % (AUTO) 7.2 % (2.0-12.0); NEUTROPHILS # (AUTO) 13.8 /CMM (1.8-8.9); NEUTROPHILS % (AUTO) 61.4 % (43.0-81.0); PLATELET COUNT (AUTO) 584 /CMM (150-450); RDW COEFFICIENT OF VARIATION 17.1 (11.5-15.0); RED BLOOD CELL COUNT(AUTO) 2.36 MIL/uL (4.5-6.0); WHITE BLOOD COUNT (AUTO) 22.5 K/uL (4.3-11.0)
[2017-11-25 09:16] LABS: CALCIUM, SERUM 8.7 mg/dL (8.5-10.1); CARBON DIOXIDE 15 mmol/L (21-32); CHLORIDE 114 mmol/L (98-107); CREATININE 1.8 mg/dL (0.6-1.3); GLUCOSE 131 mg/dL (74-106); MAGNESIUM 3.1 mg/dL (1.8-2.4); PHOSPHORUS 3.4 mg/dL (2.5-4.9); POTASSIUM 4.9 mmol/L (3.5-5.1); SODIUM SERUM 144 mmol/L (136-145); UREA NITROGEN, BLOOD 78 mg/dL (7-18)
[2017-11-25] MEDS: CHLORHEXIDINE GLUCONATE 15 ML UDC MM SCH ×2 (09:22→16:41)
[2017-11-25] MEDS: MEROPENEM 500 MG in IV NS 0.9% 50 ML IV SCH ×2 (09:23→21:49)
[2017-11-25] MEDS: PANTOPRAZOLE 40 MG VIAL IV SCH (09:23)
[2017-11-25] MEDS: LACTOBACILLUS RHAMNOSUS GG 1 EACH CAP.SPRINK PO SCH ×2 (09:24→16:41)
[2017-11-25] MEDS: FAMOTIDINE (20 MG) 20 MG TABLET GT SCH (09:24)
[2017-11-25] MEDS: LEVETIRACETAM SOL (5 ML) 100 MG/ML UDC GT SCH ×2 (09:24→21:49)
[2017-11-25] MEDS: ASCORBIC ACID 500 MG TABLET GT SCH (09:25)
[2017-11-25] MEDS: Z GUARD REMEDY 2 OZ OINT TP SCH (09:25)
[2017-11-25] MEDS: THIAMINE HCL 100 MG TABLET GT SCH (09:25)
[2017-11-25] MEDS: NEOMY SULF/BACITRAC ZN/POLY 15 GM TUBE TP SCH (09:25)
[2017-11-25] MEDS: FOLIC ACID 1 MG TABLET GT SCH (09:25)
[2017-11-25] MEDS: RIFAXIMIN 550 MG TABLET PO SCH ×2 (09:25→16:41)
[2017-11-25] MEDS: MULTIVIT, IRON, MIN NO. 8, FA 1 TAB GT SCH (09:25)
[2017-11-25] MEDS: HYDROGEL DRESSING 90 GM TUBE TP SCH (09:25)
[2017-11-25] MEDS: ACIDOPHILUS/BULGARICUS 1 EACH TAB.CHEW GT SCH (09:25)
[2017-11-25] MEDS: PROSOURCE / PROSTAT (PYXIS) 30 ML UDC GT SCH (09:35)
[2017-11-25 12:00] VITALS: BP 139/80
[2017-11-25 16:00] VITALS: BP 143/70
[2017-11-25 20:51] VITALS: BP 137/54
[2017-11-26] VITALS: BP 134/85
[2017-11-26] MEDS: INSULIN REGULAR, HUMAN 100 UNIT/ML 3 ML VIAL SQ PRN ×3 (00:44→12:42)
[2017-11-26] MEDS: BLOOD SUGAR DIAGNOSTIC 1 EACH STRIP IN SCH ×4 (00:45→18:16)
[2017-11-26] MEDS: IPRATROPIUM NEB FS 0.5 MG/2.5 ML AMPUL.NEB NEB SCH ×4 (01:27→19:22)
[2017-11-26] MEDS: ALBUTEROL FS 2.5 MG/0.5 ML VIAL.NEB NEB SCH ×4 (01:28→19:22)
[2017-11-26 04:00] VITALS: BP 136/68
[2017-11-26] MEDS: NORMAL SALINE FLUSH 10 ML SYR IV SCH ×3 (05:36→21:00)
[2017-11-26 08:00] VITALS: BP 120/70
[2017-11-26 09:04] LABS: BASOPHILS # (AUTO) 0.1 /CMM (0.0-0.2); BASOPHILS % (AUTO) 0.5 % (0.0-2.0); EOSINOPHILS # (AUTO) 0.1 /CMM (0.0-0.7); EOSINOPHILS % (AUTO) 0.5 % (0.0-6.0); HEMATOCRIT 23 % (39-51); HEMOGLOBIN 7.5 g/dL (13.5-17.5); LYMPHOCYTES # (AUTO) 7.1 /CMM (0.8-4.8); LYMPHOCYTES % (AUTO) 31.3 % (20.0-44.0); MEAN CORPUSCULAR HEMOGLOBIN 33 PG (26.0-33.0); MEAN CORPUSCULAR HGB CONC 33 g/dl (31.0-36.0); MEAN CORPUSCULAR VOLUME 100 fL (80-96); MONOCYTES # (AUTO) 1.7 /CMM (0.1-1.30); MONOCYTES % (AUTO) 7.4 % (2.0-12.0); NEUTROPHILS # (AUTO) 13.7 /CMM (1.8-8.9); NEUTROPHILS % (AUTO) 60.3 % (43.0-81.0); PLATELET COUNT (AUTO) 578 /CMM (150-450); RDW COEFFICIENT OF VARIATION 16.6 (11.5-15.0); RED BLOOD CELL COUNT(AUTO) 2.29 MIL/uL (4.5-6.0); WHITE BLOOD COUNT (AUTO) 22.8 K/uL (4.3-11.0)
[2017-11-26] MEDS: MEROPENEM 500 MG in IV NS 0.9% 50 ML IV SCH ×2 (09:07→22:17)
[2017-11-26] MEDS: PROSOURCE / PROSTAT (PYXIS) 30 ML UDC GT SCH (09:07)
[2017-11-26] MEDS: LACTOBACILLUS RHAMNOSUS GG 1 EACH CAP.SPRINK PO SCH ×2 (09:08→16:16)
[2017-11-26] MEDS: FOLIC ACID 1 MG TABLET GT SCH (09:08)
[2017-11-26] MEDS: FAMOTIDINE (20 MG) 20 MG TABLET GT SCH (09:08)
[2017-11-26] MEDS: LEVETIRACETAM SOL (5 ML) 100 MG/ML UDC GT SCH ×2 (09:08→21:36)
[2017-11-26] MEDS: ACIDOPHILUS/BULGARICUS 1 EACH TAB.CHEW GT SCH (09:08)
[2017-11-26] MEDS: ASCORBIC ACID 500 MG TABLET GT SCH (09:08)
[2017-11-26] MEDS: RIFAXIMIN 550 MG TABLET PO SCH ×2 (09:08→16:16)
[2017-11-26] MEDS: THIAMINE HCL 100 MG TABLET GT SCH (09:08)
[2017-11-26] MEDS: PANTOPRAZOLE 40 MG VIAL IV SCH (09:08)
[2017-11-26] MEDS: NEOMY SULF/BACITRAC ZN/POLY 15 GM TUBE TP SCH (09:09)
[2017-11-26] MEDS: MULTIVIT, IRON, MIN NO. 8, FA 1 TAB GT SCH (09:09)
[2017-11-26] MEDS: HYDROGEL DRESSING 90 GM TUBE TP SCH (09:09)
[2017-11-26] MEDS: Z GUARD REMEDY 2 OZ OINT TP SCH (09:09)
[2017-11-26] MEDS: FIBERSOURCE HN 1,000 ML BOTTLE NG PRN (09:10)
[2017-11-26] MEDS: CHLORHEXIDINE GLUCONATE 15 ML UDC MM SCH ×2 (09:24→16:16)
[2017-11-26 12:00] VITALS: BP 126/68
[2017-11-26 16:00] VITALS: BP 132/64
[2017-11-26 20:00] VITALS: BP 124/64
[2017-11-27] VITALS: BP 131/53
[2017-11-27] MEDS: BLOOD SUGAR DIAGNOSTIC 1 EACH STRIP IN SCH ×4 (00:06→17:06)
[2017-11-27] MEDS: INSULIN REGULAR, HUMAN 100 UNIT/ML 3 ML VIAL SQ PRN ×4 (00:13→17:07)
[2017-11-27] MEDS: FIBERSOURCE HN 1,000 ML BOTTLE NG PRN ×2 (01:22→17:11)
[2017-11-27] MEDS: IPRATROPIUM NEB FS 0.5 MG/2.5 ML AMPUL.NEB NEB SCH ×4 (01:29→19:46)
[2017-11-27] MEDS: ALBUTEROL FS 2.5 MG/0.5 ML VIAL.NEB NEB SCH ×4 (01:29→19:46)
[2017-11-27 04:00] VITALS: BP 141/46
[2017-11-27] MEDS: NORMAL SALINE FLUSH 10 ML SYR IV SCH ×3 (06:04→21:07)
[2017-11-27 08:00] VITALS: BP 141/78
[2017-11-27 08:35] LABS: BASOPHILS % (AUTO) 0.2 % (0.0-2.0); EOSINOPHILS % (AUTO) 0.2 % (0.0-6.0); HEMATOCRIT 23 % (39-51); HEMOGLOBIN 7.8 g/dL (13.5-17.5); LYMPHOCYTES # (AUTO) 6.5 /CMM (0.8-4.8); LYMPHOCYTES % (AUTO) 27.4 % (20.0-44.0); MEAN CORPUSCULAR HEMOGLOBIN 33 PG (26.0-33.0); MEAN CORPUSCULAR HGB CONC 34 g/dl (31.0-36.0); MEAN CORPUSCULAR VOLUME 99 fL (80-96); MONOCYTES # (AUTO) 1.9 /CMM (0.1-1.30); MONOCYTES % (AUTO) 8.2 % (2.0-12.0); NEUTROPHILS # (AUTO) 15.1 /CMM (1.8-8.9); PLATELET COUNT (AUTO) 626 /CMM (150-450); RDW COEFFICIENT OF VARIATION 16.5 (11.5-15.0); RED BLOOD CELL COUNT(AUTO) 2.35 MIL/uL (4.5-6.0); WHITE BLOOD COUNT (AUTO) 23.5 K/uL (4.3-11.0)
[2017-11-27] MEDS: CHLORHEXIDINE GLUCONATE 15 ML UDC MM SCH ×2 (08:48→17:06)
[2017-11-27] MEDS: LACTOBACILLUS RHAMNOSUS GG 1 EACH CAP.SPRINK PO SCH ×2 (08:49→17:06)
[2017-11-27] MEDS: RIFAXIMIN 550 MG TABLET PO SCH ×2 (08:49→17:06)
[2017-11-27] MEDS: MULTIVIT, IRON, MIN NO. 8, FA 1 TAB GT SCH (08:49)
[2017-11-27] MEDS: ASCORBIC ACID 500 MG TABLET GT SCH (08:49)
[2017-11-27] MEDS: THIAMINE HCL 100 MG TABLET GT SCH (08:49)
[2017-11-27] MEDS: PROSOURCE / PROSTAT (PYXIS) 30 ML UDC GT SCH (08:49)
[2017-11-27] MEDS: LEVETIRACETAM SOL (5 ML) 100 MG/ML UDC GT SCH ×2 (08:49→21:06)
[2017-11-27] MEDS: PANTOPRAZOLE 40 MG VIAL IV SCH (08:49)
[2017-11-27] MEDS: FOLIC ACID 1 MG TABLET GT SCH (08:49)
[2017-11-27] MEDS: FAMOTIDINE (20 MG) 20 MG TABLET GT SCH (08:49)
[2017-11-27] MEDS: Z GUARD REMEDY 2 OZ OINT TP SCH (08:50)
[2017-11-27] MEDS: NEOMY SULF/BACITRAC ZN/POLY 15 GM TUBE TP SCH (08:51)
[2017-11-27] MEDS: HYDROGEL DRESSING 90 GM TUBE TP SCH (08:51)
[2017-11-27] MEDS: MEROPENEM 500 MG in IV NS 0.9% 50 ML IV SCH ×2 (08:53→21:06)
[2017-11-27] MEDS: ACIDOPHILUS/BULGARICUS 1 EACH TAB.CHEW GT SCH (08:53)
[2017-11-27 09:20] LABS: CALCIUM, SERUM 9.2 mg/dL (8.5-10.1); CARBON DIOXIDE 18 mmol/L (21-32); CHLORIDE 120 mmol/L (98-107); CREATININE 1.9 mg/dL (0.6-1.3); GLUCOSE 147 mg/dL (74-106); MAGNESIUM 3.2 mg/dL (1.8-2.4); PHOSPHORUS 4.3 mg/dL (2.5-4.9); POTASSIUM 5.3 mmol/L (3.5-5.1); SODIUM SERUM 150 mmol/L (136-145)
[2017-11-27 09:48] LABS: UREA NITROGEN, BLOOD 89 mg/dL (7-18)
[2017-11-27 12:00] VITALS: BP 139/75
[2017-11-27 16:00] VITALS: BP 133/78
[2017-11-27 17:20] LABS: BAND % (MANUAL) 1 % (0.0-5.0); LYMPHOCYTES % (MANUAL) 23 % (16-48); MONOCYTES % (MANUAL) 8 % (0-11.0); MYELOCYTES % 1 % (0-0); NEUTROPHILS % (MANUAL) 67 (42-76)
[2017-11-27 20:00] VITALS: BP 113/69
[2017-11-28] VITALS: BP 121/77
[2017-11-28] MEDS: BLOOD SUGAR DIAGNOSTIC 1 EACH STRIP IN SCH ×4 (00:07→18:12)
[2017-11-28] MEDS: INSULIN REGULAR, HUMAN 100 UNIT/ML 3 ML VIAL SQ PRN ×3 (00:08→18:13)
[2017-11-28] MEDS: IPRATROPIUM NEB FS 0.5 MG/2.5 ML AMPUL.NEB NEB SCH ×4 (01:22→19:59)
[2017-11-28] MEDS: ALBUTEROL FS 2.5 MG/0.5 ML VIAL.NEB NEB SCH ×4 (01:22→19:59)
[2017-11-28 04:00] VITALS: BP_SYST 136; BP_DIAS 84; BP_DIAS 89
[2017-11-28] MEDS: NORMAL SALINE FLUSH 10 ML SYR IV SCH ×3 (05:03→21:03)
[2017-11-28 08:00] VITALS: BP 145/86
[2017-11-28 08:42] LABS: BASOPHILS % (AUTO) 0.1 % (0.0-2.0); EOSINOPHILS # (AUTO) 0.1 /CMM (0.0-0.7); EOSINOPHILS % (AUTO) 0.2 % (0.0-6.0); HEMATOCRIT 27 % (39-51); LYMPHOCYTES # (AUTO) 7.7 /CMM (0.8-4.8); LYMPHOCYTES % (AUTO) 28.8 % (20.0-44.0); MEAN CORPUSCULAR HEMOGLOBIN 34 PG (26.0-33.0); MEAN CORPUSCULAR HGB CONC 33 g/dl (31.0-36.0); MEAN CORPUSCULAR VOLUME 101 fL (80-96); MONOCYTES # (AUTO) 1.9 /CMM (0.1-1.30); MONOCYTES % (AUTO) 7.2 % (2.0-12.0); NEUTROPHILS # (AUTO) 17.2 /CMM (1.8-8.9); NEUTROPHILS % (AUTO) 63.7 % (43.0-81.0); PLATELET COUNT (AUTO) 688 /CMM (150-450); RDW COEFFICIENT OF VARIATION 17.8 (11.5-15.0); RED BLOOD CELL COUNT(AUTO) 2.69 MIL/uL (4.5-6.0); WHITE BLOOD COUNT (AUTO) 26.9 K/uL (4.3-11.0)
[2017-11-28] MEDS: MEROPENEM 500 MG in IV NS 0.9% 50 ML IV SCH ×2 (08:56→21:03)
[2017-11-28] MEDS: PROSOURCE / PROSTAT (PYXIS) 30 ML UDC GT SCH (08:56)
[2017-11-28] MEDS: CHLORHEXIDINE GLUCONATE 15 ML UDC MM SCH ×2 (08:56→16:42)
[2017-11-28] MEDS: PANTOPRAZOLE 40 MG VIAL IV SCH (08:56)
[2017-11-28] MEDS: THIAMINE HCL 100 MG TABLET GT SCH (08:57)
[2017-11-28] MEDS: RIFAXIMIN 550 MG TABLET PO SCH ×2 (08:57→16:42)
[2017-11-28] MEDS: ACIDOPHILUS/BULGARICUS 1 EACH TAB.CHEW GT SCH (08:57)
[2017-11-28] MEDS: LEVETIRACETAM SOL (5 ML) 100 MG/ML UDC GT SCH ×2 (08:57→21:03)
[2017-11-28] MEDS: ASCORBIC ACID 500 MG TABLET GT SCH (08:57)
[2017-11-28] MEDS: MULTIVIT, IRON, MIN NO. 8, FA 1 TAB GT SCH (08:57)
[2017-11-28] MEDS: FOLIC ACID 1 MG TABLET GT SCH (08:57)
[2017-11-28] MEDS: LACTOBACILLUS RHAMNOSUS GG 1 EACH CAP.SPRINK PO SCH ×2 (08:57→16:42)
[2017-11-28] MEDS: FAMOTIDINE (20 MG) 20 MG TABLET GT SCH (08:57)
[2017-11-28] MEDS: Z GUARD REMEDY 2 OZ OINT TP SCH (08:58)
[2017-11-28] MEDS: HYDROGEL DRESSING 90 GM TUBE TP SCH (08:58)
[2017-11-28] MEDS: NEOMY SULF/BACITRAC ZN/POLY 15 GM TUBE TP SCH (08:58)
[2017-11-28 09:00] LABS: CALCIUM, SERUM 9.1 mg/dL (8.5-10.1); CARBON DIOXIDE 19 mmol/L (21-32); CHLORIDE 120 mmol/L (98-107); GLUCOSE 140 mg/dL (74-106); MAGNESIUM 3.3 mg/dL (1.8-2.4); PHOSPHORUS 4.8 mg/dL (2.5-4.9); SODIUM SERUM 153 mmol/L (136-145)
[2017-11-28 09:01] LABS: UREA NITROGEN, BLOOD 89 mg/dL (7-18)
[2017-11-28 11:27] LABS: LYMPHOCYTES % (MANUAL) 28 % (16-48); MONOCYTES % (MANUAL) 4 % (0-11.0); NEUTROPHILS % (MANUAL) 68 (42-76)
[2017-11-28 12:00] VITALS: BP 151/86
[2017-11-28] MEDS ORDERED: IV 1/2NS 1000 ML 1,000 ML IV PRN (15:00)
[2017-11-28 16:00] VITALS: BP 135/79
[2017-11-28] MEDS: FIBERSOURCE HN 1,000 ML BOTTLE NG PRN (16:34)
[2017-11-28 20:00] VITALS: BP 112/69
[2017-11-29] MEDS: BLOOD SUGAR DIAGNOSTIC 1 EACH STRIP IN SCH ×5 (00:36→23:42)
[2017-11-29] MEDS: INSULIN REGULAR, HUMAN 100 UNIT/ML 3 ML VIAL SQ PRN ×5 (00:37→23:47)
[2017-11-29] MEDS: ALBUTEROL FS 2.5 MG/0.5 ML VIAL.NEB NEB SCH ×4 (02:09→20:17)
[2017-11-29] MEDS: IPRATROPIUM NEB FS 0.5 MG/2.5 ML AMPUL.NEB NEB SCH ×4 (02:09→20:17)
[2017-11-29 04:00] VITALS: BP 136/90
[2017-11-29] MEDS: NORMAL SALINE FLUSH 10 ML SYR IV SCH ×3 (05:40→21:36)
[2017-11-29 06:40] LABS: BASOPHILS % (AUTO) 0.1 % (0.0-2.0); EOSINOPHILS # (AUTO) 0.1 /CMM (0.0-0.7); EOSINOPHILS % (AUTO) 0.3 % (0.0-6.0); HEMATOCRIT 27 % (39-51); HEMOGLOBIN 8.8 g/dL (13.5-17.5); LYMPHOCYTES # (AUTO) 6.1 /CMM (0.8-4.8); LYMPHOCYTES % (AUTO) 26.3 % (20.0-44.0); MEAN CORPUSCULAR HEMOGLOBIN 33 PG (26.0-33.0); MEAN CORPUSCULAR HGB CONC 33 g/dl (31.0-36.0); MEAN CORPUSCULAR VOLUME 102 fL (80-96); MONOCYTES # (AUTO) 1.5 /CMM (0.1-1.30); MONOCYTES % (AUTO) 6.6 % (2.0-12.0); NEUTROPHILS # (AUTO) 15.3 /CMM (1.8-8.9); NEUTROPHILS % (AUTO) 66.7 % (43.0-81.0); PLATELET COUNT (AUTO) 667 /CMM (150-450); RDW COEFFICIENT OF VARIATION 18.9 (11.5-15.0); RED BLOOD CELL COUNT(AUTO) 2.64 MIL/uL (4.5-6.0)
[2017-11-29 07:05] LABS: ALANINE AMINOTRANSFERASE 136 U/L (12-78); ALBUMIN 1.7 g/dL (3.4-5.0); ALKALINE PHOSPHATASE 346 U/L (46-116); ASPARTATE AMINOTRANSFERASE 87 U/L (15-37); BILIRUBIN,TOTAL 1.3 mg/dL (0.2-1.0); CALCIUM, SERUM 8.9 mg/dL (8.5-10.1); CARBON DIOXIDE 17 mmol/L (21-32); CREATININE 1.7 mg/dL (0.6-1.3); GLUCOSE 153 mg/dL (74-106); MAGNESIUM 3.3 mg/dL (1.8-2.4); PHOSPHORUS 4.7 mg/dL (2.5-4.9); POTASSIUM 4.8 mmol/L (3.5-5.1); TOTAL PROTEIN, SERUM 6.9 g/dL (6.4-8.2)
[2017-11-29 07:07] LABS: CHLORIDE 126 mmol/L (98-107); SODIUM SERUM 160 mmol/L (136-145); UREA NITROGEN, BLOOD 96 mg/dL (7-18)
[2017-11-29 08:00] VITALS: BP 123/73
[2017-11-29] MEDS: IV D5W 1,000 ML IV PRN (08:11)
[2017-11-29] MEDS: FIBERSOURCE HN 1,000 ML BOTTLE NG PRN (09:09)
[2017-11-29] MEDS: PANTOPRAZOLE 40 MG VIAL IV SCH (09:20)
[2017-11-29] MEDS: CHLORHEXIDINE GLUCONATE 15 ML UDC MM SCH ×2 (09:20→17:12)
[2017-11-29] MEDS: ACIDOPHILUS/BULGARICUS 1 EACH TAB.CHEW GT SCH (09:21)
[2017-11-29] MEDS: MULTIVIT, IRON, MIN NO. 8, FA 1 TAB GT SCH (09:21)
[2017-11-29] MEDS: FAMOTIDINE (20 MG) 20 MG TABLET GT SCH (09:21)
[2017-11-29] MEDS: LACTOBACILLUS RHAMNOSUS GG 1 EACH CAP.SPRINK PO SCH ×2 (09:21→17:12)
[2017-11-29] MEDS: THIAMINE HCL 100 MG TABLET GT SCH (09:21)
[2017-11-29] MEDS: RIFAXIMIN 550 MG TABLET PO SCH ×2 (09:21→17:12)
[2017-11-29] MEDS: FOLIC ACID 1 MG TABLET GT SCH (09:21)
[2017-11-29] MEDS: ASCORBIC ACID 500 MG TABLET GT SCH (09:21)
[2017-11-29] MEDS: LEVETIRACETAM SOL (5 ML) 100 MG/ML UDC GT SCH ×2 (09:21→21:34)
[2017-11-29] MEDS: NEOMY SULF/BACITRAC ZN/POLY 15 GM TUBE TP SCH (09:22)
[2017-11-29] MEDS: PROSOURCE / PROSTAT (PYXIS) 30 ML UDC GT SCH (09:22)
[2017-11-29] MEDS: Z GUARD REMEDY 2 OZ OINT TP SCH (09:22)
[2017-11-29] MEDS: HYDROGEL DRESSING 90 GM TUBE TP SCH (09:22)
[2017-11-29] MEDS: MEROPENEM 500 MG in IV NS 0.9% 50 ML IV SCH ×2 (09:23→21:35)
[2017-11-29 11:56] LABS: BAND % (MANUAL) 1 % (0.0-5.0); LYMPHOCYTES % (MANUAL) 19 % (16-48); MONOCYTES % (MANUAL) 4 % (0-11.0); NEUTROPHILS % (MANUAL) 76 (42-76)
[2017-11-29 16:00] VITALS: BP 118/76
[2017-11-29 20:00] VITALS: BP 147/88
[2017-11-30] MEDS: ALBUTEROL FS 2.5 MG/0.5 ML VIAL.NEB NEB SCH ×4 (02:22→20:13)
[2017-11-30] MEDS: IPRATROPIUM NEB FS 0.5 MG/2.5 ML AMPUL.NEB NEB SCH ×4 (02:23→20:13)
[2017-11-30] MEDS: FIBERSOURCE HN 1,000 ML BOTTLE NG PRN ×2 (02:50→22:28)
[2017-11-30] MEDS: NORMAL SALINE FLUSH 10 ML SYR IV SCH ×3 (04:40→21:00)
[2017-11-30] MEDS: IV D5W 1,000 ML IV PRN (04:41)
[2017-11-30] MEDS: BLOOD SUGAR DIAGNOSTIC 1 EACH STRIP IN SCH ×3 (06:30→17:21)
[2017-11-30 07:51] LABS: BASOPHILS % (AUTO) 0.1 % (0.0-2.0); EOSINOPHILS # (AUTO) 0.1 /CMM (0.0-0.7); EOSINOPHILS % (AUTO) 0.5 % (0.0-6.0); HEMATOCRIT 27 % (39-51); HEMOGLOBIN 8.9 g/dL (13.5-17.5); LYMPHOCYTES # (AUTO) 6.6 /CMM (0.8-4.8); LYMPHOCYTES % (AUTO) 29.5 % (20.0-44.0); MEAN CORPUSCULAR HEMOGLOBIN 34 PG (26.0-33.0); MEAN CORPUSCULAR HGB CONC 33 g/dl (31.0-36.0); MEAN CORPUSCULAR VOLUME 101 fL (80-96); MONOCYTES # (AUTO) 1.8 /CMM (0.1-1.30); NEUTROPHILS # (AUTO) 13.7 /CMM (1.8-8.9); NEUTROPHILS % (AUTO) 61.9 % (43.0-81.0); PLATELET COUNT (AUTO) 652 /CMM (150-450); RDW COEFFICIENT OF VARIATION 18.6 (11.5-15.0); RED BLOOD CELL COUNT(AUTO) 2.65 MIL/uL (4.5-6.0); WHITE BLOOD COUNT (AUTO) 22.2 K/uL (4.3-11.0)
[2017-11-30 08:00] VITALS: BP 146/79
[2017-11-30 08:29] LABS: ALANINE AMINOTRANSFERASE 159 U/L (12-78); ALBUMIN 1.8 g/dL (3.4-5.0); ALKALINE PHOSPHATASE 362 U/L (46-116); ASPARTATE AMINOTRANSFERASE 104 U/L (15-37); BILIRUBIN,TOTAL 1.5 mg/dL (0.2-1.0); CALCIUM, SERUM 8.9 mg/dL (8.5-10.1); CARBON DIOXIDE 17 mmol/L (21-32); CHLORIDE 124 mmol/L (98-107); CREATININE 1.6 mg/dL (0.6-1.3); GLUCOSE 135 mg/dL (74-106); MAGNESIUM 3.1 mg/dL (1.8-2.4); PHOSPHORUS 3.9 mg/dL (2.5-4.9); POTASSIUM 4.7 mmol/L (3.5-5.1)
[2017-11-30 09:17] LABS: SODIUM SERUM 157 mmol/L (136-145)
[2017-11-30 09:18] LABS: UREA NITROGEN, BLOOD 87 mg/dL (7-18)
[2017-11-30] MEDS: CHLORHEXIDINE GLUCONATE 15 ML UDC MM SCH ×2 (09:20→17:21)
[2017-11-30] MEDS: LEVETIRACETAM SOL (5 ML) 100 MG/ML UDC GT SCH ×2 (09:20→20:47)
[2017-11-30] MEDS: FOLIC ACID 1 MG TABLET GT SCH (09:20)
[2017-11-30] MEDS: PANTOPRAZOLE 40 MG VIAL IV SCH (09:21)
[2017-11-30] MEDS: FAMOTIDINE (20 MG) 20 MG TABLET GT SCH (09:21)
[2017-11-30] MEDS: ACIDOPHILUS/BULGARICUS 1 EACH TAB.CHEW GT SCH (09:21)
[2017-11-30] MEDS: MULTIVIT, IRON, MIN NO. 8, FA 1 TAB GT SCH (09:21)
[2017-11-30] MEDS: RIFAXIMIN 550 MG TABLET PO SCH ×2 (09:21→17:21)
[2017-11-30] MEDS: ASCORBIC ACID 500 MG TABLET GT SCH (09:21)
[2017-11-30] MEDS: LACTOBACILLUS RHAMNOSUS GG 1 EACH CAP.SPRINK PO SCH ×2 (09:21→17:21)
[2017-11-30] MEDS: THIAMINE HCL 100 MG TABLET GT SCH (09:21)
[2017-11-30] MEDS: NEOMY SULF/BACITRAC ZN/POLY 15 GM TUBE TP SCH (09:23)
[2017-11-30] MEDS: Z GUARD REMEDY 2 OZ OINT TP SCH (09:23)
[2017-11-30] MEDS: MEROPENEM 500 MG in IV NS 0.9% 50 ML IV SCH ×2 (09:25→20:46)
[2017-11-30] MEDS: PROSOURCE / PROSTAT (PYXIS) 30 ML UDC GT SCH (09:25)
[2017-11-30 10:12] VITALS: BP 145/79
[2017-11-30] MEDS: INSULIN REGULAR, HUMAN 100 UNIT/ML 3 ML VIAL SQ PRN (13:01)
[2017-11-30] MEDS: HYDROGEL DRESSING 90 GM TUBE TP SCH (15:16)
[2017-11-30 16:00] VITALS: BP 130/84
[2017-11-30 20:00] VITALS: BP 133/70
[2017-11-30 20:12] VITALS: BP 133/70
[2017-12-01] MEDS: BLOOD SUGAR DIAGNOSTIC 1 EACH STRIP IN SCH ×5 (00:10→23:29)
[2017-12-01] MEDS: INSULIN REGULAR, HUMAN 100 UNIT/ML 3 ML VIAL SQ PRN ×3 (00:13→11:51)
[2017-12-01 01:23] VITALS: BP 133/70
[2017-12-01] MEDS: ALBUTEROL FS 2.5 MG/0.5 ML VIAL.NEB NEB SCH ×4 (01:30→19:44)
[2017-12-01] MEDS: IPRATROPIUM NEB FS 0.5 MG/2.5 ML AMPUL.NEB NEB SCH ×4 (01:30→19:44)
[2017-12-01] MEDS: IV D5W 1,000 ML IV PRN (01:34)
[2017-12-01 04:14] VITALS: BP 121/75
[2017-12-01] MEDS: NORMAL SALINE FLUSH 10 ML SYR IV SCH ×3 (05:08→22:03)
[2017-12-01 07:28] LABS: CALCIUM, SERUM 8.7 mg/dL (8.5-10.1); CARBON DIOXIDE 20 mmol/L (21-32); CHLORIDE 119 mmol/L (98-107); CREATININE 1.6 mg/dL (0.6-1.3); GLUCOSE 134 mg/dL (74-106); POTASSIUM 4.5 mmol/L (3.5-5.1); SODIUM SERUM 153 mmol/L (136-145)
[2017-12-01 07:29] LABS: BASOPHILS % (AUTO) 0.1 % (0.0-2.0); EOSINOPHILS # (AUTO) 0.1 /CMM (0.0-0.7); EOSINOPHILS % (AUTO) 0.4 % (0.0-6.0); HEMATOCRIT 27 % (39-51); HEMOGLOBIN 8.8 g/dL (13.5-17.5); LYMPHOCYTES # (AUTO) 8.1 /CMM (0.8-4.8); LYMPHOCYTES % (AUTO) 34.6 % (20.0-44.0); MEAN CORPUSCULAR HEMOGLOBIN 33 PG (26.0-33.0); MEAN CORPUSCULAR HGB CONC 33 g/dl (31.0-36.0); MEAN CORPUSCULAR VOLUME 102 fL (80-96); MONOCYTES # (AUTO) 1.6 /CMM (0.1-1.30); NEUTROPHILS # (AUTO) 13.7 /CMM (1.8-8.9); NEUTROPHILS % (AUTO) 57.9 % (43.0-81.0); PLATELET COUNT (AUTO) 602 /CMM (150-450); RDW COEFFICIENT OF VARIATION 18.7 (11.5-15.0); RED BLOOD CELL COUNT(AUTO) 2.63 MIL/uL (4.5-6.0); WHITE BLOOD COUNT (AUTO) 23.5 K/uL (4.3-11.0)
[2017-12-01 07:48] LABS: UREA NITROGEN, BLOOD 83 mg/dL (7-18)
[2017-12-01 08:00] VITALS: BP 132/75
[2017-12-01] MEDS: MEROPENEM 500 MG in IV NS 0.9% 50 ML IV SCH (08:42)
[2017-12-01] MEDS: THIAMINE HCL 100 MG TABLET GT SCH (08:43)
[2017-12-01] MEDS: ACIDOPHILUS/BULGARICUS 1 EACH TAB.CHEW GT SCH (08:43)
[2017-12-01] MEDS: LACTOBACILLUS RHAMNOSUS GG 1 EACH CAP.SPRINK PO SCH ×2 (08:43→17:11)
[2017-12-01] MEDS: RIFAXIMIN 550 MG TABLET PO SCH ×2 (08:43→17:11)
[2017-12-01] MEDS: FAMOTIDINE (20 MG) 20 MG TABLET GT SCH (08:43)
[2017-12-01] MEDS: ASCORBIC ACID 500 MG TABLET GT SCH (08:43)
[2017-12-01] MEDS: CHLORHEXIDINE GLUCONATE 15 ML UDC MM SCH ×2 (08:43→17:11)
[2017-12-01] MEDS: MULTIVIT, IRON, MIN NO. 8, FA 1 TAB GT SCH (08:43)
[2017-12-01] MEDS: FOLIC ACID 1 MG TABLET GT SCH (08:43)
[2017-12-01] MEDS: LEVETIRACETAM SOL (5 ML) 100 MG/ML UDC GT SCH ×2 (08:44→22:03)
[2017-12-01] MEDS: PANTOPRAZOLE 40 MG VIAL IV SCH (08:44)
[2017-12-01] MEDS: Z GUARD REMEDY 2 OZ OINT TP SCH (08:45)
[2017-12-01] MEDS: NEOMY SULF/BACITRAC ZN/POLY 15 GM TUBE TP SCH (08:45)
[2017-12-01] MEDS: HYDROGEL DRESSING 90 GM TUBE TP SCH (08:45)
[2017-12-01] MEDS: PROSOURCE / PROSTAT (PYXIS) 30 ML UDC GT SCH (09:04)
[2017-12-01 10:00] VITALS: BP 132/75
[2017-12-01 16:00] VITALS: BP 145/72
[2017-12-01 20:00] VITALS: BP 131/84
[2017-12-02] MEDS: ALBUTEROL FS 2.5 MG/0.5 ML VIAL.NEB NEB SCH ×4 (01:56→19:46)
[2017-12-02] MEDS: IPRATROPIUM NEB FS 0.5 MG/2.5 ML AMPUL.NEB NEB SCH ×4 (01:56→19:46)
[2017-12-02 04:00] VITALS: BP 148/85
[2017-12-02] MEDS: NORMAL SALINE FLUSH 10 ML SYR IV SCH ×3 (05:31→21:51)
[2017-12-02] MEDS: INSULIN REGULAR, HUMAN 100 UNIT/ML 3 ML VIAL SQ PRN ×3 (06:39→23:34)
[2017-12-02] MEDS: BLOOD SUGAR DIAGNOSTIC 1 EACH STRIP IN SCH ×4 (06:40→23:34)
[2017-12-02 08:00] VITALS: BP 157/92
[2017-12-02 08:10] LABS: BASOPHILS # (AUTO) 0.2 /CMM (0.0-0.2); BASOPHILS % (AUTO) 0.8 % (0.0-2.0); EOSINOPHILS # (AUTO) 0.1 /CMM (0.0-0.7); EOSINOPHILS % (AUTO) 0.2 % (0.0-6.0); HEMATOCRIT 31 % (39-51); HEMOGLOBIN 10.1 g/dL (13.5-17.5); LYMPHOCYTES # (AUTO) 7.7 /CMM (0.8-4.8); LYMPHOCYTES % (AUTO) 32.6 % (20.0-44.0); MEAN CORPUSCULAR HEMOGLOBIN 33 PG (26.0-33.0); MEAN CORPUSCULAR HGB CONC 32 g/dl (31.0-36.0); MEAN CORPUSCULAR VOLUME 102 fL (80-96); MONOCYTES # (AUTO) 1.5 /CMM (0.1-1.30); MONOCYTES % (AUTO) 6.2 % (2.0-12.0); NEUTROPHILS # (AUTO) 14.3 /CMM (1.8-8.9); NEUTROPHILS % (AUTO) 60.2 % (43.0-81.0); PLATELET COUNT (AUTO) 572 /CMM (150-450); RDW COEFFICIENT OF VARIATION 18.3 (11.5-15.0); RED BLOOD CELL COUNT(AUTO) 3.08 MIL/uL (4.5-6.0); WHITE BLOOD COUNT (AUTO) 23.8 K/uL (4.3-11.0)
[2017-12-02] MEDS: IV D5W 1,000 ML IV PRN ×2 (09:19→23:29)
[2017-12-02] MEDS: ACIDOPHILUS/BULGARICUS 1 EACH TAB.CHEW GT SCH (09:20)
[2017-12-02] MEDS: MULTIVIT, IRON, MIN NO. 8, FA 1 TAB GT SCH (09:20)
[2017-12-02] MEDS: PANTOPRAZOLE 40 MG VIAL IV SCH (09:20)
[2017-12-02] MEDS: LACTOBACILLUS RHAMNOSUS GG 1 EACH CAP.SPRINK PO SCH ×2 (09:20→17:20)
[2017-12-02] MEDS: THIAMINE HCL 100 MG TABLET GT SCH (09:20)
[2017-12-02] MEDS: ASCORBIC ACID 500 MG TABLET GT SCH (09:20)
[2017-12-02] MEDS: FAMOTIDINE (20 MG) 20 MG TABLET GT SCH (09:20)
[2017-12-02] MEDS: PROSOURCE / PROSTAT (PYXIS) 30 ML UDC GT SCH (09:20)
[2017-12-02] MEDS: CHLORHEXIDINE GLUCONATE 15 ML UDC MM SCH ×2 (09:20→17:20)
[2017-12-02] MEDS: FOLIC ACID 1 MG TABLET GT SCH (09:20)
[2017-12-02] MEDS: RIFAXIMIN 550 MG TABLET PO SCH ×2 (09:20→17:20)
[2017-12-02] MEDS: LEVETIRACETAM SOL (5 ML) 100 MG/ML UDC GT SCH ×2 (09:20→21:51)
[2017-12-02] MEDS: Z GUARD REMEDY 2 OZ OINT TP SCH (09:22)
[2017-12-02] MEDS: HYDROGEL DRESSING 90 GM TUBE TP SCH (09:22)
[2017-12-02] MEDS: NEOMY SULF/BACITRAC ZN/POLY 15 GM TUBE TP SCH (09:22)
[2017-12-02 09:27] LABS: ALANINE AMINOTRANSFERASE 138 U/L (12-78); ALBUMIN 1.8 g/dL (3.4-5.0); ALKALINE PHOSPHATASE 372 U/L (46-116); ASPARTATE AMINOTRANSFERASE 92 U/L (15-37); BILIRUBIN,TOTAL 1.8 mg/dL (0.2-1.0); CALCIUM, SERUM 8.8 mg/dL (8.5-10.1); CARBON DIOXIDE 16 mmol/L (21-32); CHLORIDE 113 mmol/L (98-107); CREATININE 1.4 mg/dL (0.6-1.3); GLUCOSE 143 mg/dL (74-106); MAGNESIUM 2.8 mg/dL (1.8-2.4); PHOSPHORUS 4.9 mg/dL (2.5-4.9); POTASSIUM 5.4 mmol/L (3.5-5.1); SODIUM SERUM 141 mmol/L (136-145); UREA NITROGEN, BLOOD 69 mg/dL (7-18)
[2017-12-02] MEDS ORDERED: LACT1CAP72 PO (15:20)
[2017-12-02 16:00] VITALS: BP 129/79
[2017-12-02] MEDS: FIBERSOURCE HN 1,000 ML BOTTLE NG PRN (17:20)
[2017-12-03] MEDS: IPRATROPIUM NEB FS 0.5 MG/2.5 ML AMPUL.NEB NEB SCH ×4 (01:47→19:30)
[2017-12-03] MEDS: ALBUTEROL FS 2.5 MG/0.5 ML VIAL.NEB NEB SCH ×4 (01:47→19:30)
[2017-12-03 04:00] VITALS: BP 120/60
[2017-12-03] MEDS: NORMAL SALINE FLUSH 10 ML SYR IV SCH ×3 (05:43→21:02)
[2017-12-03] MEDS: BLOOD SUGAR DIAGNOSTIC 1 EACH STRIP IN SCH ×4 (05:46→23:23)
[2017-12-03] MEDS: INSULIN REGULAR, HUMAN 100 UNIT/ML 3 ML VIAL SQ PRN ×4 (05:48→23:26)
[2017-12-03 08:00] VITALS: BP 138/82
[2017-12-03] MEDS: LEVETIRACETAM SOL (5 ML) 100 MG/ML UDC GT SCH ×2 (08:46→21:02)
[2017-12-03] MEDS: CHLORHEXIDINE GLUCONATE 15 ML UDC MM SCH ×2 (08:46→16:37)
[2017-12-03] MEDS: ACIDOPHILUS/BULGARICUS 1 EACH TAB.CHEW GT SCH (08:46)
[2017-12-03] MEDS: PANTOPRAZOLE 40 MG VIAL IV SCH (08:46)
[2017-12-03] MEDS: Z GUARD REMEDY 2 OZ OINT TP SCH (08:46)
[2017-12-03] MEDS: PROSOURCE / PROSTAT (PYXIS) 30 ML UDC GT SCH (08:46)
[2017-12-03] MEDS: ASCORBIC ACID 500 MG TABLET GT SCH (08:47)
[2017-12-03] MEDS: MULTIVIT, IRON, MIN NO. 8, FA 1 TAB GT SCH (08:47)
[2017-12-03] MEDS: LACTOBACILLUS RHAMNOSUS GG 1 EACH CAP.SPRINK PO SCH ×2 (08:47→16:37)
[2017-12-03] MEDS: FOLIC ACID 1 MG TABLET GT SCH (08:47)
[2017-12-03] MEDS: THIAMINE HCL 100 MG TABLET GT SCH (08:47)
[2017-12-03] MEDS: FAMOTIDINE (20 MG) 20 MG TABLET GT SCH (08:47)
[2017-12-03] MEDS: RIFAXIMIN 550 MG TABLET PO SCH ×2 (08:47→16:37)
[2017-12-03] MEDS: HYDROGEL DRESSING 90 GM TUBE TP SCH (08:48)
[2017-12-03] MEDS: NEOMY SULF/BACITRAC ZN/POLY 15 GM TUBE TP SCH (08:48)
[2017-12-03] MEDS: FIBERSOURCE HN 1,000 ML BOTTLE NG PRN (09:01)
[2017-12-03 12:00] VITALS: BP 138/86
[2017-12-03] MEDS: IV D5W 1,000 ML IV PRN (13:49)
[2017-12-03 16:00] VITALS: BP 135/81
[2017-12-03 20:00] VITALS: BP 139/87
[2017-12-03] MEDS ORDERED: SODIUM POLYSTYRENE SULFONATE 15 G/60 ML BOTTLE PO ONE (20:30)
[2017-12-03 21:51] LABS: CALCIUM, SERUM 8.4 mg/dL (8.5-10.1); CARBON DIOXIDE 16 mmol/L (21-32); CHLORIDE 105 mmol/L (98-107); CREATININE 1.2 mg/dL (0.6-1.3); GLUCOSE 176 mg/dL (74-106); POTASSIUM 4.9 mmol/L (3.5-5.1); SODIUM SERUM 132 mmol/L (136-145); UREA NITROGEN, BLOOD 63 mg/dL (7-18)
[2017-12-04] MEDS: ALBUTEROL FS 2.5 MG/0.5 ML VIAL.NEB NEB SCH ×3 (00:46→13:13)
[2017-12-04] MEDS: IPRATROPIUM NEB FS 0.5 MG/2.5 ML AMPUL.NEB NEB SCH ×3 (00:47→13:13)
[2017-12-04] MEDS: FIBERSOURCE HN 1,000 ML BOTTLE NG PRN (03:33)
[2017-12-04] MEDS: IV D5W 1,000 ML IV PRN (03:33)
[2017-12-04 04:00] VITALS: BP 146/82
[2017-12-04] MEDS: NORMAL SALINE FLUSH 10 ML SYR IV SCH ×2 (05:41→14:21)
[2017-12-04] MEDS: BLOOD SUGAR DIAGNOSTIC 1 EACH STRIP IN SCH ×2 (05:46→12:00)
[2017-12-04] MEDS: INSULIN REGULAR, HUMAN 100 UNIT/ML 3 ML VIAL SQ PRN (05:49)
[2017-12-04] MEDS: NEOMY SULF/BACITRAC ZN/POLY 15 GM TUBE TP SCH (09:00)
[2017-12-04] MEDS: CHLORHEXIDINE GLUCONATE 15 ML UDC MM SCH (09:00)
[2017-12-04] MEDS: HYDROGEL DRESSING 90 GM TUBE TP SCH (09:00)
[2017-12-04] MEDS: PROSOURCE / PROSTAT (PYXIS) 30 ML UDC GT SCH (09:00)
[2017-12-04] MEDS: LEVETIRACETAM SOL (5 ML) 100 MG/ML UDC GT SCH (09:00)
[2017-12-04] MEDS: Z GUARD REMEDY 2 OZ OINT TP SCH (09:00)
[2017-12-04] MEDS: PANTOPRAZOLE 40 MG VIAL IV SCH (09:57)
[2017-12-04] MEDS: FOLIC ACID 1 MG TABLET GT SCH (10:37)
[2017-12-04] MEDS: THIAMINE HCL 100 MG TABLET GT SCH (10:38)
[2017-12-04] MEDS: RIFAXIMIN 550 MG TABLET PO SCH (10:38)
[2017-12-04] MEDS: FAMOTIDINE (20 MG) 20 MG TABLET GT SCH (10:38)
[2017-12-04] MEDS: ASCORBIC ACID 500 MG TABLET GT SCH (10:38)
[2017-12-04] MEDS: ACIDOPHILUS/BULGARICUS 1 EACH TAB.CHEW GT SCH (10:40)
[2017-12-04] MEDS: LACTOBACILLUS RHAMNOSUS GG 1 EACH CAP.SPRINK PO SCH (10:41)
[2017-12-04] MEDS: MULTIVIT, IRON, MIN NO. 8, FA 1 TAB GT SCH (10:41)
[2017-12-04 12:00] VITALS: BP 146/82
== END 2017-12-04 16:00 | DRG 166 ==
LOC: ER 17:17 → ICU 21:07 → TELE-TD 11-20 18:30 → TELE1 11-22 09:37 → MEDSG1 11-28 10:11
PROVIDERS: ADMIT Internal Medicine; ATTEND Internal Medicine
PROC: 0JB40ZZ Excision of Right Neck Subcutaneous Tissue and Fascia, Open Approach (ICD-10-PCS; principal; 2017-11-19)
PROC: 0JB70ZZ Excision of Back Subcutaneous Tissue and Fascia, Open Approach (ICD-10-PCS; 2017-11-19)
PROC: 05H633Z Insertion of Infusion Device into Left Subclavian Vein, Percutaneous Approach (ICD-10-PCS; 2017-11-21)
PROC: B547ZZA Ultrasonography of Left Subclavian Vein, Guidance (ICD-10-PCS; 2017-11-21)
DX: J95.851 Ventilator associated pneumonia (principal); A41.9 Sepsis, unspecified organism; J96.20 Acute and chronic respiratory failure, unspecified whether with hypoxia or hypercapnia; N17.0 Acute kidney failure with tubular necrosis; E43 Unspecified severe protein-calorie malnutrition; G92 Toxic encephalopathy; E44.0 Moderate protein-calorie malnutrition; L89.894 Pressure ulcer of other site, stage 4; Z93.0 Tracheostomy status; L89.153 Pressure ulcer of sacral region, stage 3; R53.2 Functional quadriplegia; J96.21 Acute and chronic respiratory failure with hypoxia; E87.0 Hyperosmolality and hypernatremia; I82.621 Acute embolism and thrombosis of deep veins of right upper extremity; D68.59 Other primary thrombophilia; N13.30 Unspecified hydronephrosis; N39.0 Urinary tract infection, site not specified; K80.21 Calculus of gallbladder without cholecystitis with obstruction; E87.2 Acidosis; C95.90 Leukemia, unspecified not having achieved remission; C85.90 Non-Hodgkin lymphoma, unspecified, unspecified site; Z93.6 Other artificial openings of urinary tract status; Z93.1 Gastrostomy status; Z87.820 Personal history of traumatic brain injury; Z79.899 Other long term (current) drug therapy; Z79.01 Long term (current) use of anticoagulants; R13.10 Dysphagia, unspecified; Z74.01 Bed confinement status; I25.10 Atherosclerotic heart disease of native coronary artery without angina pectoris; N18.9 Chronic kidney disease, unspecified; D63.8 Anemia in other chronic diseases classified elsewhere; E78.5 Hyperlipidemia, unspecified; E87.5 Hyperkalemia; K74.60 Unspecified cirrhosis of liver; K72.90 Hepatic failure, unspecified without coma; G40.909 Epilepsy, unspecified, not intractable, without status epilepticus; I12.9 Hypertensive chronic kidney disease with stage 1 through stage 4 chronic kidney disease, or unspecified chronic kidney disease; K21.9 Gastro-esophageal reflux disease without esophagitis; F09 Unspecified mental disorder due to known physiological condition; E03.9 Hypothyroidism, unspecified; K58.9 Irritable bowel syndrome, unspecified; I48.91 Unspecified atrial fibrillation; E86.1 Hypovolemia; B96.1 Klebsiella pneumoniae [K. pneumoniae] as the cause of diseases classified elsewhere; Z87.01 Personal history of pneumonia (recurrent); Z22.321 Carrier or suspected carrier of Methicillin susceptible Staphylococcus aureus
CPT/HCPCS: 31720; 36415; 36569; 36600; 70450-TC; 71010-TC; 71045; 76700-TC; 80048-TC; 80053-TC; 80076-TC; 80202-TC; 81000-TC; 82140-TC; 82248-TC; 82570-TC; 82728-TC; 82746; 82784; 82803-TC; 82962-TC; 83540-TC; 83605-TC; 83735-TC; 84100-TC; 84155; 84165; 84300-TC; 84443-TC; 84484-TC; 85025-TC; 85396; 85730-TC; 86334; 87040-TC; 87070-TC; 87081-TC; 87086-TC; 87186-TC; 93971-TC; 94640-TC; 94664-TC; 94760-TC; 94762-TC; A4216; A4349; A4606; A6248; A6253; A6402; A6403; C9113; J0696; J1815; J1953; J2185; J2543; J3370; J3430; J3480; J3490; J7030; J7050; J7060; J7070; Z7610